=== PATIENT | female | born 1950 | race Caucasian/White ===

== ENCOUNTER 2018-07-06 14:30 | Oncology outpatient (ONC) | payer MEDICARE, SELFPAY ==
--- NOTE | 2018-03-17 08:46 | ONC.APRN.PN ---
Assessment and Plan (1) Malignant neoplasm of rectum Current visit: No Status: Acute 03/17/18 08:53 Kari is a 68-year-old female with a a recurrence of rectal cancer in prior radiation field. She was receiving treatment here at [facility] until July of 2017 at which point she traveled to [facility] for the winter. She continued with FOLFIRI with [facility]. She received 9 of 12 planned cycles. The last 4 or 5 cycles were at 50% reduction due to significant decrease in functional status. Patient is now back in [place] and is looking to re establish care. She had imaging in [place] in December of 2017. She also had imaging here at [place] March 09, 2018 which did not demonstrate any evidence of local recurrence or distant metastases of colon cancer. Imaging was very reassuring however patient is asking for radiology to re read. I will call radiology and ask for re read. In the meantime she had labs drawn today including CEA. These results are pending. I would like for her to return to the clinic next week WednesdayMarch 23 to see medical oncologist Dr Vaughan. I would like for him to review imaging and discuss with the patient appropriate plan of care moving forward. Patient agrees with this plan of care. On exam she looks quite good today. She is clearly recovering from her chemotherapy. There was no palpable adenopathy on exam. She does have a colostomy, she had severe diarrhea with treatment stools have now normalized. Appetite is improving. 03/17/18 12:07 - Time Spent with Patient 35 minutes PN -Subjective Interval history: Kari is a 68-year-old female with a a recurrence of rectal cancer in prior radiation field. She returned from her winter in [place] about 1 month ago. Over the winter she had her left knee replaced. She also had oncology care provided by to [facility]. Per patient report and in review of records it appears she completed 9 of 12 scheduled cycles of FOLFIRI. The last 4 cycles were at 50% dose reduction due to a significant drop in functional status. Patient herself reports she was very sick with fatigue, weakness, diarrhea. Also abnormal labs. She underwent re staging imaging in [place] December 14 2017 also here at 03/09/2018. PET/CT here at was very reassuring. Specifically, there was no evidence of local recurrence or distant metastatic disease. She does have 2 4 mm right middle lobe nodules which are unchanged since 2014. Again, otherwise head and neck, thorax, abdomen pelvis, bones did not demonstrate any evidence of disease. This is very reassuring however the patient is reluctant to accept this report. Per the patient she had imaging at [facility] last year 2016 which the radiologist read as negative for malignancy however when Dr Martin reviewed it he noted a tumor in her right groin on imaging. Pt is requesting a re read of recent imaging. She states CEA contniuned to fluctuate during treatment in [place]. Overall she is beginning to cover from chemotherapy. She states she is starting to feel like a normal human being. She reports she has no desire to resume chemotherapy again any time soon. Certainly, if it is anything like FOLFIRI. Appetite has returned. She is feeling stronger also has more endurance. Stools have normalized (she has colostomy). She still has some trouble with balance for which she is seeing physical therapy. This is in large part due to peripheral neuropathy however as noted above she also recently had left knee replacement which is also contributing to balance issues. Initially She was offered the option of surgical resection however due to potential complications she declined and has been receiving FOLFIRI/Avastin . The iliac node was noted to be smaller on most recent CT imaging. Additionally, based on CEA it appears she is having a response to FOLFIRI/Avastin. Recently she took a hiatus from treatment to undergo hip therapy in [facility]. Dr Gordon previous note: Kari had a radiographic recurrrence in an iliac node of rectal cancer within the prior radiation field. She consulted with Dr. England, who, according to the patient, indicated resection of the lymph node could be accomplished but it would be a big surgery with potential complications. This opinion was also affirmed by her surgeon in [place]. The patient elected not to go to surgery but rather undergo chemotherapy. She started q 14 d FOLFIRI Avastin on 06/30 (CT was 06/22) and is up for cycle 2 today. However, she is up for hip surgery in [facility]; this will require a delay in chemotgherapy. Originally, for rectal cancer, she has had a primary resection after neoadjuvant chemoradiotherapy, adjuvant FOLFOX, subsequent resection of a stephanie metastasis in [place], with a delay in adjuvant therapy. She has also had recent hip surgery and is concerned abou the impact of that on any future surgery. 1. Status post preoperative chemoradiation therapy followed by surgery for rectal carcinoma. The final staging preoperatively TX N1b M0; postoperative T1 N0 M0 after radiation therapy with a 3-cm primary extending into, but not through, the muscularis propria. Adjuvant FOLFOX completed 07/15/2016 2. Preoperative radiation and continuous infusion of 5-FU. 3. Other history including diarrhea. 4. This was an adenocarcinoma grade 2 with mutated KRAS. She was seen by Dr. 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 She was evaluated at [facility] and was not considered a radiation candidate due to the prior radiation field. Patient comes here for further evaluation and management of the radiographic recurrence. TIMELINE Original diagnosis of rectal cancer by colonoscopy 07/20/2014. Subsequent properative chemoradiotherapy in [place], Dr. 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 : CT scan from 03/2017 reviewed below. Past Medical History 5. Endometrial carcinoma, stage IB in 2006, ROSANNE-BSO with no chemotherapy or radiation. 6. ACL repair on the right in the past. 7. Diabetes. Past Surgical History 5. Endometrial carcinoma, stage IB in 2006, ROSANNE-BSO with no chemotherapy or radiation. 6. ACL repair on the right in the past. 7. Diabetes. 8. ROSANNE/BSO Results - Labs 03/17/18 11:09 03/17/18 11:09 - Imaging Additional studies: Procedures Closed [endoscopic] biopsy of large intestine (07/20/14) Esophagogastroduodenoscopy [EGD] with closed biopsy (07/20/14) Home Medications and Allergies Home Medications Medication Instructions Recorded Confirmed Type levothyroxine [Synthroid] 0.075 mg PO QDAY #0 05/27/16 History pantoprazole 40 mg PO BID #0 05/27/16 History naproxen sodium [Aleve] 220 mg PO PRN #0 07/10/16 History lutein-zeaxanthin 1 mg PO QDAY #0 02/17/17 History vitamin B complex [B 1 tab PO QDAY #0 02/17/17 History Complex-Vitamin B12] diphenoxylate-atropine 1 tab PO PRN PRN #30 tab 06/30/17 Rx lorazepam 0.5 mg PO Q6HP PRN #30 tab 06/30/17 Rx ondansetron HCl 8 mg PO Q8H PRN #0 07/15/17 History dextroamphetamine-amphetamine 10 mg PO DAILY 03/17/18 03/17/18 History [Adderall] Exam Narrative: non toxic appearing - Constitutional positive no acute distress, positive average body habitus - Routine HEENT Exam Head: Present: normocephalic, atraumatic Eye: Present: EOMI, PERRL, normal accommodation, conjunctivae pink. Absent: conjunctival icterus, scleral injection ENT: Present: mucous membranes moist - Routine Neck Exam Present: supple. Absent: lymphadenopathy - Routine Chest/Breast/Axilla Exam Axillae: Absent: lymphadenopathy, mass, tenderness - Routine Respiratory Exam Present: Clear to auscultation bilaterally - Routine Cardiovascular Exam Present: RRR, S1, S2 - Routine Abdominal Exam Present: soft, normoactive bowel sounds, ostomy. Absent: tenderness, distended, guarding, organomegaly Palpation/Percussion: Absent: hepatomegaly, splenomegaly Comments: no palpable inguinal nodes - Routine Extremities Exam Absent: edema, calf tenderness - Routine Skin Exam Present: intact, normal turgor. Absent: petechiae, rash - Routine Neurological Exam Present: alert, oriented X3 - Routine Psychiatric Exam Present: normal affect
--- NOTE | 2018-03-17 08:52 | P.PNONC_ITS ---
Assessment and Plan (1) Malignant neoplasm of rectum Current visit: No Status: Acute 03/17/18 08:53 Kari is a 68-year-old female with a a recurrence of rectal cancer in prior radiation field. She was receiving treatment here at [facility] until July of 2017 at which point she traveled to [facility] for the winter. She continued with FOLFIRI with [facility]. She received 9 of 12 planned cycles. The last 4 or 5 cycles were at 50% reduction due to significant decrease in functional status. Patient is now back in [place] and is looking to re establish care. She had imaging in [place] in December of 2017. She also had imaging here at [place] March 09, 2018 which did not demonstrate any evidence of local recurrence or distant metastases of colon cancer. Imaging was very reassuring however patient is asking for radiology to re read. I will call radiology and ask for re read. In the meantime she had labs drawn today including CEA. These results are pending. I would like for her to return to the clinic next week WednesdayMarch 23 to see medical oncologist Dr Vaughan. I would like for him to review imaging and discuss with the patient appropriate plan of care moving forward. Patient agrees with this plan of care. On exam she looks quite good today. She is clearly recovering from her chemotherapy. There was no palpable adenopathy on exam. She does have a colostomy, she had severe diarrhea with treatment stools have now normalized. Appetite is improving. 03/17/18 12:07 - Time Spent with Patient 35 minutes PN -Subjective Interval history: Kari is a 68-year-old female with a a recurrence of rectal cancer in prior radiation field. She returned from her winter in [place] about 1 month ago. Over the winter she had her left knee replaced. She also had oncology care provided by to [facility]. Per patient report and in review of records it appears she completed 9 of 12 scheduled cycles of FOLFIRI. The last 4 cycles were at 50% dose reduction due to a significant drop in functional status. Patient herself reports she was very sick with fatigue, weakness, diarrhea. Also abnormal labs. She underwent re staging imaging in [place] December 14 2017 also here at 03/09/2018. PET/CT here at was very reassuring. Specifically , there was no evidence of local recurrence or distant metastatic disease. She does have 2 4 mm right middle lobe nodules which are unchanged since 2014. Again, otherwise head and neck, thorax, abdomen pelvis, bones did not demonstrate any evidence of disease. This is very reassuring however the patient is reluctant to accept this report. Per the patient she had imaging at [facility] last year 2016 which the radiologist read as negative for malignancy however when Dr Martin reviewed it he noted a tumor in her right groin on imaging. Pt is requesting a re read of recent imaging. She states CEA contniuned to fluctuate during treatment in [place]. Overall she is beginning to cover from chemotherapy. She states she is starting to feel like a normal human being. She reports she has no desire to resume chemotherapy again any time soon. Certainly, if it is anything like FOLFIRI. Appetite has returned. She is feeling stronger also has more endurance. Stools have normalized (she has colostomy). She still has some trouble with balance for which she is seeing physical therapy. This is in large part due to peripheral neuropathy however as noted above she also recently had left knee replacement which is also contributing to balance issues. Initially She was offered the option of surgical resection however due to potential complications she declined and has been receiving FOLFIRI/Avastin . The iliac node was noted to be smaller on most recent CT imaging. Additionally , based on CEA it appears she is having a response to FOLFIRI/Avastin. Recently she took a hiatus from treatment to undergo hip therapy in [facility] Dr Gordon previous note: Kari had a radiographic recurrrence in an iliac node of rectal cancer within the prior radiation field. She consulted with Dr. England, who, according to the patient, indicated resection of the lymph node could be accomplished but it would be a big surgery with potential complications. This opinion was also affirmed by her surgeon in [place]. The patient elected not to go to surgery but rather undergo chemotherapy. She started q 14 d FOLFIRI Avastin on 06/30 (CT was 06/22) and is up for cycle 2 today. However, she is up for hip surgery in [facility]; this will require a delay in chemotgherapy. Originally, for rectal cancer, she has had a primary resection after neoadjuvant chemoradiotherapy, adjuvant FOLFOX, subsequent resection of a stephanie metastasis in [place], with a delay in adjuvant therapy. She has also had recent hip surgery and is concerned abou the impact of that on any future surgery. 1. Status post preoperative chemoradiation therapy followed by surgery for rectal carcinoma. The final staging preoperatively [place] N1b M0; postoperative T1 N0 M0 after radiation therapy with a 3-cm primary extending into, but not through, the muscularis propria. Adjuvant FOLFOX completed 07/15/2016 2. Preoperative radiation and continuous infusion of 5-FU. 3. Other history including diarrhea. 4. This was an adenocarcinoma grade 2 with mutated KRAS. She was seen by Dr. 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 She was evaluated at [facility] and was not considered a radiation candidate due to the prior radiation field. Patient comes here for further evaluation and management of the radiographic recurrence. TIMELINE Original diagnosis of rectal cancer by colonoscopy 07/20/2014. Subsequent properative chemoradiotherapy in [place], Dr. 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 : CT scan from 03/2017 reviewed below. Past Medical History 5. Endometrial carcinoma, stage IB in 2006, ROSANNE-BSO with no chemotherapy or radiation. 6. ACL repair on the right in the past. 7. Diabetes. Past Surgical History 5. Endometrial carcinoma, stage IB in 2006, ROSANNE-BSO with no chemotherapy or radiation. 6. ACL repair on the right in the past. 7. Diabetes. 8. ROSANNE/BSO Results - Labs 03/17/18 11:09 03/17/18 11:09 - Imaging Additional studies: Procedures Closed [endoscopic] biopsy of large intestine (07/20/14) Esophagogastroduodenoscopy [EGD] with closed biopsy (07/20/14) Home Medications and Allergies Home Medications Medication Instructions Recorded Confirmed Type levothyroxine [Synthroid] 0.075 mg PO QDAY #0 05/27/16 History pantoprazole 40 mg PO BID #0 05/27/16 History naproxen sodium [Aleve] 220 mg PO PRN #0 07/10/16 History lutein-zeaxanthin 1 mg PO QDAY #0 02/17/17 History vitamin B complex [B 1 tab PO QDAY #0 02/17/17 History Complex-Vitamin B12] diphenoxylate-atropine 1 tab PO PRN PRN #30 tab 06/30/17 Rx lorazepam 0.5 mg PO Q6HP PRN #30 tab 06/30/17 Rx ondansetron HCl 8 mg PO Q8H PRN #0 07/15/17 History dextroamphetamine-amphetamine 10 mg PO DAILY 03/17/18 03/17/18 History [Adderall] Exam Narrative: non toxic appearing - Constitutional positive no acute distress, positive average body habitus - Routine HEENT Exam Head: Present: normocephalic, atraumatic Eye: Present: EOMI, PERRL, normal accommodation, conjunctivae pink. Absent: conjunctival icterus, scleral injection ENT: Present: mucous membranes moist - Routine Neck Exam Present: supple. Absent: lymphadenopathy - Routine Chest/Breast/Axilla Exam Axillae: Absent: lymphadenopathy, mass, tenderness - Routine Respiratory Exam Present: Clear to auscultation bilaterally - Routine Cardiovascular Exam Present: RRR, S1, S2 - Routine Abdominal Exam Present: soft, normoactive bowel sounds, ostomy. Absent: tenderness, distended , guarding, organomegaly Palpation/Percussion: Absent: hepatomegaly, splenomegaly Comments: no palpable inguinal nodes - Routine Extremities Exam Absent: edema, calf tenderness - Routine Skin Exam Present: intact, normal turgor. Absent: petechiae, rash - Routine Neurological Exam Present: alert, oriented X3 - Routine Psychiatric Exam Present: normal affect
[2018-03-17 11:15] VITALS: BP 151/83; PULSE 87; RESP 16; TEMP 36.2; O2SAT 98
[2018-03-17 11:25] LABS: Add Manual Diff / Slide Review NO; Basophils Percent Auto 1.2 % (0-2); Eosinophils Percent Auto 3.5 % (2-4); Hematocrit 37.8 % (36-46); Hemoglobin 12.3 g/dL (12.0-16.0); Lymphocytes Percent Auto 13.9 % (25-40); Mean Corpuscular HGB Conc 32.4 % (30-36); Mean Corpuscular Hemoglobin 26.4 PG (26-34); Mean Corpuscular Volume 81.6 fL (80-100); Monocytes Percent Auto 5.9 % (3-14); Neutrophils Absolute Auto 3600 /uL (3000-5900); Neutrophils Percent Auto 75.5 % (50-75); Platelet Count 162 X10^3/uL (150-400); Red Blood Cell Count 4.64 X10^6/uL (4.0-5.2); Red Cell Distribution Width 16.1 % (11.6-14.8); White Blood Cell Count 4.7 X10^3/uL (4.5-11.0)
[2018-03-17 11:37] LABS: Alanine Aminotransferase 21 IU/L (9-52); Albumin 4.2 g/dL (3.5-5.0); Albumin Globulin Ratio 1.4 (1.0-2.8); Alkaline Phosphatase 69 U/L (38-126); Aspartate Aminotransferase 49 IU/L (14-36); BUN Creatinine Ratio 25.7 (6-22); Bilirubin Total 0.8 mg/dL (0.2-1.3); Blood Urea Nitrogen 18 mg/dL (7-17); Calcium 9.3 mg/dL (8.4-10.2); Carbon Dioxide 25 mmol/L (22-32); Chloride 103 mmol/L (98-107); Estimated Glomerular Filt Rate > 60.0 mL/min (>60); Globulin 3.1 g/dL (1.7-4.1); Glucose 101 mg/dL (80-110); HEMOLYSIS 27 (0-50); Potassium 4.5 mmol/L (3.4-5.1); Sodium 141 mmol/L (137-145); Total Protein 7.3 g/dL (6.3-8.2)
[2018-03-17 12:07] LABS: Carcinoembryonic Antigen 22.9 ng/mL (0.1-3.0)
--- NOTE | 2018-04-06 17:04 | ONC.PN ---
Assessment and Plan - Time Spent with Patient IMPRESSION: 1. RECURRENT RECTAL CARCINOMA. 2. ELEVATED CEA. Nonsmoker. 3. Fatigue and malaise, improving. 4. DIABETES MELLITUS 5. ENDOMETRIAL CARCINOMA, STAGE IB STATUS POST ROSANNE-BSO IN 2005. I reviewed her extensive, past records from [place] and from [place] as well as recent imaging reports, labs and related documents. She is recovering well from recently completed chemotherapy in December 2017. She is not at all anxious to resume systemic therapy and there are no clear guidelines to make additional recommendations at this time. I reviewed with her that typically we would try to offer consolidative, local therapy in the form of surgical resection or radiation therapy. She has had extensive evaluation and consultation including with Dr. Brink at [facility] and no additional treatment was recommended. She has also visited with her primary surgeon, Dr. Smith in [place] and he also agreed that further surgery was not a viable option for her. We reviewed other treatment options as well as monitoring. Also reviewed recent PET/CT from 03/09/2018. This was not directly compared with her most recent PET-CT from [place] date 12/14/2017. There were some mild, new findings particularly in bilateral nayana and she would like more information about this. I will request that her recent scan be reviewed and compared directly with her December PET/CT. She has brought her CD in previously and we are told it has been up loaded onto the local [facility] imaging system. We will otherwise anticipate a follow-up scan 3 months from her recent study. She is comfortable with the plan and will call with any new concerns. PLAN: 1. Request review of PET/CT 03/09/2018 and direct comparison with outside study from 12/14/2017. 2. Repeat CEA in 2 weeks. 3. Follow-up appointment pending above results or any new concerns arise. 4. Return to clinic in early June. 5. CT versus PET/CT prior to the visit. 6. CBC, CMP, CEA in June. 7. Follow up with other providers as planned. DICTATED BY CATALINA LYNCH MD MEDICAL ONCOLOGY AND HEMATOLOGY PN -Subjective Interval history: Ms Choudhury is a 68-year-old woman with recurrent rectal carcinoma. Interval history: She returns today with her friend, Snehal. Here to review recent imaging, treatment history and plan. She was originally diagnosed on routine colonoscopy in July 2014. Treated with neoadjuvant 5 FU and radiation therapy before undergoing AP resection in [place] performed by Dr. Harris in December 2014. She completed adjuvant therapy with 6 months of FOLFOX in approximately July 2015. Subsequently noted a rising CEA in summer 2015, reportedly in the range of 60 with PET scan showing a left pelvic lymph node just bordering the radiation treatment field. She had surgery in [place] to resect this and continued monitoring. Subsequently, noted in early 2016 to have an no other area in the left pelvis with slight hypermetabolic activity on PET scan, again representing possible small lymph node or nodule. This time, surgery was not recommended and she was seen locally by Dr Martin, as well as Dr England, at [facility] by Dr Mann in medical oncology and by Dr Brink in radiation oncology and finally back in [place] by Dr. Arevalo and Dr Harris. All agreed that surgery would be too extensive, she was not eligible for proton therapy due to her left hip prosthesis and stereotactic radiation therapy was not an option due to adjacent small bowel exposure. She was not eligible for clinical trial at [facility] but ultimately was treated based on this with a combination of FOLFIRI and bevacizumab. She received treatment from late June 2017 through December 2017 with the 1st few weeks in [place] and the majority in [place]. She had difficulty with treatment due to bowel and GI symptoms, fatigue and cytopenias. She ultimately completed 9/12 planned cycles of FOLFIRI. She recently returned to [place] where she plans to spend the summer and early fall months. She returns today to review treatment plan. SUMMARY FROM PAST NOTES: Kari is a 68-year-old female with a a recurrence of rectal cancer in prior radiation field. She returned from her winter in [place] about 1 month ago. Over the winter she had her left knee replaced. She also had oncology care provided by to [facility]. Per patient report and in review of records it appears she completed 9 of 12 scheduled cycles of FOLFIRI. The last 4 cycles were at 50% dose reduction due to a significant drop in functional status. Patient herself reports she was very sick with fatigue, weakness, diarrhea. Also abnormal labs. She underwent re staging imaging in [place] December 14 2017 also here at 03/09/2018. PET/CT here at was very reassuring. Specifically, there was no evidence of local recurrence or distant metastatic disease. She does have 2 4 mm right middle lobe nodules which are unchanged since 2014. Again, otherwise head and neck, thorax, abdomen pelvis, bones did not demonstrate any evidence of disease. This is very reassuring however the patient is reluctant to accept this report. Per the patient she had imaging at [facility] last year 2016 which the radiologist read as negative for malignancy however when Dr Martin reviewed it he noted a tumor in her right groin on imaging. Pt is requesting a re read of recent imaging. She states CEA contniuned to fluctuate during treatment in [place]. Overall she is beginning to cover from chemotherapy. She states she is starting to feel like a normal human being. She reports she has no desire to resume chemotherapy again any time soon. Certainly, if it is anything like FOLFIRI. Appetite has returned. She is feeling stronger also has more endurance. Stools have normalized (she has colostomy). She still has some trouble with balance for which she is seeing physical therapy. This is in large part due to peripheral neuropathy however as noted above she also recently had left knee replacement which is also contributing to balance issues. Initially She was offered the option of surgical resection however due to potential complications she declined and has been receiving FOLFIRI/Avastin . The iliac node was noted to be smaller on most recent CT imaging. Additionally, based on CEA it appears she is having a response to FOLFIRI/Avastin. Recently she took a hiatus from treatment to undergo hip therapy in [facility]. Dr Gordon previous note: Kari had a radiographic recurrrence in an iliac node of rectal cancer within the prior radiation field. She consulted with Dr. England, who, according to the patient, indicated resection of the lymph node could be accomplished but it would be a big surgery with potential complications. This opinion was also affirmed by her surgeon in [place]. The patient elected not to go to surgery but rather undergo chemotherapy. She started q 14 d FOLFIRI Avastin on 06/30 (CT was 06/22) and is up for cycle 2 today. However, she is up for hip surgery in [facility]; this will require a delay in chemotgherapy. Originally, for rectal cancer, she has had a primary resection after neoadjuvant chemoradiotherapy, adjuvant FOLFOX, subsequent resection of a stephanie metastasis in [place], with a delay in adjuvant therapy. She has also had recent hip surgery and is concerned abou the impact of that on any future surgery. 1. Status post preoperative chemoradiation therapy followed by surgery for rectal carcinoma. The final staging preoperatively TX N1b M0; postoperative T1 N0 M0 after radiation therapy with a 3-cm primary extending into, but not through, the muscularis propria. Adjuvant FOLFOX completed 07/15/2016 2. Preoperative radiation and continuous infusion of 5-FU. 3. Other history including diarrhea. 4. This was an adenocarcinoma grade 2 with mutated KRAS. She was seen by Dr. 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 She was evaluated at [facility] and was not considered a radiation candidate due to the prior radiation field. Patient comes here for further evaluation and management of the radiographic recurrence. TIMELINE Original diagnosis of rectal cancer by colonoscopy 07/20/2014. Subsequent properative chemoradiotherapy in [place], Dr. Kelley , radiation oncologist Subsequent FOLFOX adjuvant chemotherapy, completed 07/15/2015 PET/CT 05/08/16 showing retroperitoneal oligometastasis RECORDS UNAVAILABLE: subsequent resection of oligometastasis in [place] PET/CT 01/27/2017 showing a different pelvicoligometastasis on the left in the prion radiation field. : CT scan from 03/2017 reviewed below. Past Medical History 5. Endometrial carcinoma, stage IB in 2006, ROSANNE-BSO with no chemotherapy or radiation. 6. ACL repair on the right in the past. 7. Diabetes. Past Surgical History 5. Endometrial carcinoma, stage IB in 2006, ROSANNE-BSO with no chemotherapy or radiation. 6. ACL repair on the right in the past. 7. Diabetes. 8. ROSANNE/BSO - Patient Self-Reported Symptoms SR Constitution: Fatigue/Malaise SR Skin issues: Hair loss or scalp prob, Nail changes SR Gastrointestinal issues: Change in bowel pattern, Diarrhea SR Genitourinary issues: Frequent urination SR Musculoskeletal issues: Muscle weakness SR Neuro issues: Numbness or tingling SR Endocrine issues: Cold intolerance - Additional ROS Additional ROS: REVIEW OF SYSTEMS: NO FEVER, CHILLS OR RECENT WEIGHT LOSS. HEENT: NO HEADACHES, VISION CHANGE OR DYSPHAGIA. RESPIRATORY: NEGATIVE. CARDIAC: NO CHEST PAIN, PND OR ORTHOPNEA. GI: NEGATIVE. COLOSTOMY IS FUNCTIONING. NO HEMATOCHEZIA. : NEGATIVE. MUSCULOSKELETAL: NEGATIVE. NEUROLOGIC: NEGATIVE. Results - Labs 03/17/18 11:09 03/17/18 11:09 Laboratory Last Values WBC 4.7 X10^3/uL (4.5-11.0) 03/17/18 11:09 RBC 4.64 X10^6/uL (4.0-5.2) 03/17/18 11:09 Hgb 12.3 g/dL (12.0-16.0) 03/17/18 11:09 Hct 37.8 % (36-46) 03/17/18 11:09 MCV 81.6 fL (80-100) 03/17/18 11:09 MCH 26.4 PG (26-34) 03/17/18 11:09 MCHC 32.4 % (30-36) 03/17/18 11:09 RDW 16.1 % (11.6-14.8) H 03/17/18 11:09 Plt Count 162 X10^3/uL (150-400) 03/17/18 11:09 Neut % (Auto) 75.5 % (50-75) H 03/17/18 11:09 Lymph % (Auto) 13.9 % (25-40) L 03/17/18 11:09 [place] % (Auto) 5.9 % (3-14) 03/17/18 11:09 Eos % (Auto) 3.5 % (2-4) 03/17/18 11:09 Baso % (Auto) 1.2 % (0-2) 03/17/18 11:09 Neut # (Auto) 3600 /uL (4756-0754) 03/17/18 11:09 Sodium 141 mmol/L (137-145) 03/17/18 11:09 Potassium 4.5 mmol/L (3.4-5.1) 03/17/18 11:09 Chloride 103 mmol/L (98-107) 03/17/18 11:09 Carbon Dioxide 25 mmol/L (22-32) 03/17/18 11:09 BUN 18 mg/dL (7-17) H 03/17/18 11:09 Creatinine 0.70 mg/dL (0.52-1.04) 03/17/18 11:09 Estimated GFR > 60.0 mL/min (>60) 03/17/18 11:09 BUN/Creatinine Ratio 25.7 (6-22) H 03/17/18 11:09 Glucose 101 mg/dL (80-110) 03/17/18 11:09 Calcium 9.3 mg/dL (8.4-10.2) 03/17/18 11:09 Total Bilirubin 0.8 mg/dL (0.2-1.3) 03/17/18 11:09 AST 49 IU/L (14-36) H 03/17/18 11:09 ALT 21 IU/L (9-52) 03/17/18 11:09 Alkaline Phosphatase 69 U/L (38-126) 03/17/18 11:09 Total Protein 7.3 g/dL (6.3-8.2) 03/17/18 11:09 Albumin 4.2 g/dL (3.5-5.0) 03/17/18 11:09 Globulin 3.1 g/dL (1.7-4.1) 03/17/18 11:09 Albumin/Globulin Ratio 1.4 (1.0-2.8) 03/17/18 11:09 Carcinoembryonic Ag 22.9 ng/mL (0.1-3.0) H 03/17/18 11:09 - Imaging Additional studies: Procedures Closed [endoscopic] biopsy of large intestine (07/20/14) Esophagogastroduodenoscopy [EGD] with closed biopsy (07/20/14) Home Medications and Allergies Home Medications Medication Instructions Recorded Confirmed Type levothyroxine [Synthroid] 0.075 mg PO QDAY #0 05/27/16 History pantoprazole 40 mg PO BID #0 05/27/16 History naproxen sodium [Aleve] 220 mg PO PRN #0 07/10/16 History lutein-zeaxanthin 1 mg PO QDAY #0 02/17/17 History vitamin B complex [B 1 tab PO QDAY #0 02/17/17 History Complex-Vitamin B12] diphenoxylate-atropine 1 tab PO PRN PRN #30 tab 06/30/17 Rx lorazepam 0.5 mg PO Q6HP PRN #30 tab 06/30/17 Rx ondansetron HCl 8 mg PO Q8H PRN #0 07/15/17 History dextroamphetamine-amphetamine 10 mg PO DAILY 03/17/18 03/17/18 History [Adderall] Exam Vital signs: Last Vital Signs Temp 97.2 F L 03/17/18 11:15 Pulse 87 03/17/18 11:15 Resp 16 03/17/18 11:15 BP 151/83 H 03/17/18 11:15 Pulse Ox 98 03/17/18 11:15 - Constitutional positive no acute distress, positive average body habitus - Routine HEENT Exam Head: Present: normocephalic, atraumatic. Absent: cushingoid faces Eye: Present: EOMI, PERRL. Absent: conjunctival icterus, scleral injection ENT: Present: mucous membranes moist, oropharynx clear - Routine Neck Exam Present: supple. Absent: JVD, lymphadenopathy - Routine Respiratory Exam Present: Clear to auscultation bilaterally. Absent: rales, rhonchi, wheezes - Routine Cardiovascular Exam Present: RRR, S1, S2. Absent: murmur, S3 - Routine Abdominal Exam Present: soft, normoactive bowel sounds, ostomy. Absent: tenderness, distended, guarding, organomegaly Palpation/Percussion: Absent: hepatomegaly - Routine Extremities Exam Absent: cyanosis, clubbing, edema - Routine Back/Spine Exam Back/Spine: Present: full ROM. Absent: vertebral tenderness - Routine Skin Exam Present: intact. Absent: cyanosis, erythema, jaundice, rash, ecchymosis - Routine Neurological Exam Present: alert, oriented X3, moving all extremities, normal speech - Routine Psychiatric Exam Present: normal affect, normal thought process, cooperative, good insight, good judgment
--- NOTE | 2018-04-06 17:15 | P.PNONC_ITS ---
Assessment and Plan - Time Spent with Patient IMPRESSION: 1. RECURRENT RECTAL CARCINOMA. 2. ELEVATED CEA. Nonsmoker. 3. Fatigue and malaise, improving. 4. DIABETES MELLITUS 5. ENDOMETRIAL CARCINOMA, STAGE IB STATUS POST ROSANNE-BSO IN 2005. I reviewed her extensive, past records from [place] and from [place] as well as recent imaging reports, labs and related documents. She is recovering well from recently completed chemotherapy in December 2017. She is not at all anxious to resume systemic therapy and there are no clear guidelines to make additional recommendations at this time. I reviewed with her that typically we would try to offer consolidative, local therapy in the form of surgical resection or radiation therapy. She has had extensive evaluation and consultation including with Dr. Brink at [facility] and no additional treatment was recommended. She has also visited with her primary surgeon, Dr. Smith in [place] and he also agreed that further surgery was not a viable option for her. We reviewed other treatment options as well as monitoring. Also reviewed recent PET/CT from 03/09. This was not directly compared with her most recent PET-CT from [place] date 12/14/2017. There were some mild, new findings particularly in bilateral nayana and she would like more information about this. I will request that her recent scan be reviewed and compared directly with her December PET/CT. She has brought her CD in previously and we are told it has been up loaded onto the local [facility] imaging system. We will otherwise anticipate a follow-up scan 3 months from her recent study. She is comfortable with the plan and will call with any new concerns. PLAN: 1. Request review of PET/CT 03/09/2018 and direct comparison with outside study from 12/14/2017. 2. Repeat CEA in 2 weeks. 3. Follow-up appointment pending above results or any new concerns arise. 4. Return to clinic in early June. 5. CT versus PET/CT prior to the visit. 6. CBC, CMP, CEA in June. 7. Follow up with other providers as planned. DICTATED BY CATALINA LYNCH MD MEDICAL ONCOLOGY AND HEMATOLOGY PN -Subjective Interval history: Ms Choudhury is a 68-year-old woman with recurrent rectal carcinoma. Interval history: She returns today with her friend, Snehal. Here to review recent imaging, treatment history and plan. She was originally diagnosed on routine colonoscopy in July 2014. Treated with neoadjuvant 5 FU and radiation therapy before undergoing AP resection in [place] performed by Dr. Harris in December 2014. She completed adjuvant therapy with 6 months of FOLFOX in approximately July 2015. Subsequently noted a rising CEA in summer 2015, reportedly in the range of 60 with PET scan showing a left pelvic lymph node just bordering the radiation treatment field. She had surgery in [place] to resect this and continued monitoring. Subsequently, noted in early 2016 to have an no other area in the left pelvis with slight hypermetabolic activity on PET scan, again representing possible small lymph node or nodule. This time, surgery was not recommended and she was seen locally by Dr Martin, as well as Dr England, at [facility] by Dr Mann in medical oncology and by Dr Brink in radiation oncology and finally back in [place] by Dr. Arevalo and Dr Harris. All agreed that surgery would be too extensive, she was not eligible for proton therapy due to her left hip prosthesis and stereotactic radiation therapy was not an option due to adjacent small bowel exposure. She was not eligible for clinical trial at [facility] but ultimately was treated based on this with a combination of FOLFIRI and bevacizumab. She received treatment from late June 2017 through December 2017 with the 1st few weeks in [place] and the majority in [place]. She had difficulty with treatment due to bowel and GI symptoms, fatigue and cytopenias. She ultimately completed 9/12 planned cycles of FOLFIRI. She recently returned to [place] where she plans to spend the summer and early fall months. She returns today to review treatment plan. SUMMARY FROM PAST NOTES: Kari is a 68-year-old female with a a recurrence of rectal cancer in prior radiation field. She returned from her winter in [place] about 1 month ago. Over the winter she had her left knee replaced. She also had oncology care provided by to [facility]. Per patient report and in review of records it appears she completed 9 of 12 scheduled cycles of FOLFIRI. The last 4 cycles were at 50% dose reduction due to a significant drop in functional status. Patient herself reports she was very sick with fatigue, weakness, diarrhea. Also abnormal labs. She underwent re staging imaging in [place] December 14 2017 also here at 03/09/2018. PET/CT here at was very reassuring. Specifically , there was no evidence of local recurrence or distant metastatic disease. She does have 2 4 mm right middle lobe nodules which are unchanged since 2014. Again, otherwise head and neck, thorax, abdomen pelvis, bones did not demonstrate any evidence of disease. This is very reassuring however the patient is reluctant to accept this report. Per the patient she had imaging at [facility] last year 2016 which the radiologist read as negative for malignancy however when Dr Martin reviewed it he noted a tumor in her right groin on imaging. Pt is requesting a re read of recent imaging. She states CEA contniuned to fluctuate during treatment in [place]. Overall she is beginning to cover from chemotherapy. She states she is starting to feel like a normal human being. She reports she has no desire to resume chemotherapy again any time soon. Certainly, if it is anything like FOLFIRI. Appetite has returned. She is feeling stronger also has more endurance. Stools have normalized (she has colostomy). She still has some trouble with balance for which she is seeing physical therapy. This is in large part due to peripheral neuropathy however as noted above she also recently had left knee replacement which is also contributing to balance issues. Initially She was offered the option of surgical resection however due to potential complications she declined and has been receiving FOLFIRI/Avastin . The iliac node was noted to be smaller on most recent CT imaging. Additionally , based on CEA it appears she is having a response to FOLFIRI/Avastin. Recently she took a hiatus from treatment to undergo hip therapy in [facility]. Dr Gordon previous note: Kari had a radiographic recurrrence in an iliac node of rectal cancer within the prior radiation field. She consulted with Dr. England, who, according to the patient, indicated resection of the lymph node could be accomplished but it would be a big surgery with potential complications. This opinion was also affirmed by her surgeon in [place]. The patient elected not to go to surgery but rather undergo chemotherapy. She started q 14 d FOLFIRI Avastin on 06/30 (CT was 06/22) and is up for cycle 2 today. However, she is up for hip surgery in [facility]; this will require a delay in chemotgherapy. Originally, for rectal cancer, she has had a primary resection after neoadjuvant chemoradiotherapy, adjuvant FOLFOX, subsequent resection of a stephanie metastasis in [place], with a delay in adjuvant therapy. She has also had recent hip surgery and is concerned abou the impact of that on any future surgery. 1. Status post preoperative chemoradiation therapy followed by surgery for rectal carcinoma. The final staging preoperatively TX N1b M0; postoperative T1 N0 M0 after radiation therapy with a 3-cm primary extending into, but not through, the muscularis propria. Adjuvant FOLFOX completed 07/15/2016 2. Preoperative radiation and continuous infusion of 5-FU. 3. Other history including diarrhea. 4. This was an adenocarcinoma grade 2 with mutated KRAS. She was seen by Dr. 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 She was evaluated at [facility] and was not considered a radiation candidate due to the prior radiation field. Patient comes here for further evaluation and management of the radiographic recurrence. TIMELINE Original diagnosis of rectal cancer by colonoscopy 07/20/2014. Subsequent properative chemoradiotherapy in [place], Dr. Kelley , radiation oncologist Subsequent FOLFOX adjuvant chemotherapy, completed 07/15/2015 PET/CT 05/08/16 showing retroperitoneal oligometastasis RECORDS UNAVAILABLE: subsequent resection of oligometastasis in [place] PET/CT 01/27/2017 showing a different pelvicoligometastasis on the left in the prion radiation field. : CT scan from 03/2017 reviewed below. Past Medical History 5. Endometrial carcinoma, stage IB in 2006, ROSANNE-BSO with no chemotherapy or radiation. 6. ACL repair on the right in the past. 7. Diabetes. Past Surgical History 5. Endometrial carcinoma, stage IB in 2006, ROSANNE-BSO with no chemotherapy or radiation. 6. ACL repair on the right in the past. 7. Diabetes. 8. ROSANNE/BSO - Patient Self-Reported Symptoms SR Constitution: Fatigue/Malaise SR Skin issues: Hair loss or scalp prob, Nail changes SR Gastrointestinal issues: Change in bowel pattern, Diarrhea SR Genitourinary issues: Frequent urination SR Musculoskeletal issues: Muscle weakness SR Neuro issues: Numbness or tingling SR Endocrine issues: Cold intolerance - Additional ROS Additional ROS: REVIEW OF SYSTEMS: NO FEVER, CHILLS OR RECENT WEIGHT LOSS. HEENT: NO HEADACHES , VISION CHANGE OR DYSPHAGIA. RESPIRATORY: NEGATIVE. CARDIAC: NO CHEST PAIN , PND OR ORTHOPNEA. GI: NEGATIVE. COLOSTOMY IS FUNCTIONING. NO HEMATOCHEZIA. : NEGATIVE. MUSCULOSKELETAL: NEGATIVE. NEUROLOGIC: NEGATIVE. Results - Labs 03/17/18 11:09 03/17/18 11:09 Laboratory Last Values WBC 4.7 X10^3/uL (4.5-11.0) 03/17/18 11:09 RBC 4.64 X10^6/uL (4.0-5.2) 03/17/18 11:09 Hgb 12.3 g/dL (12.0-16.0) 03/17/18 11:09 Hct 37.8 % (36-46) 03/17/18 11:09 MCV 81.6 fL (80-100) 03/17/18 11:09 MCH 26.4 PG (26-34) 03/17/18 11:09 MCHC 32.4 % (30-36) 03/17/18 11:09 RDW 16.1 % (11.6-14.8) H 03/17/18 11:09 Plt Count 162 X10^3/uL (150-400) 03/17/18 11:09 Neut % (Auto) 75.5 % (50-75) H 03/17/18 11:09 Lymph % (Auto) 13.9 % (25-40) L 03/17/18 11:09 Duval % (Auto) 5.9 % (3-14) 03/17/18 11:09 Eos % (Auto) 3.5 % (2-4) 03/17/18 11:09 Baso % (Auto) 1.2 % (0-2) 03/17/18 11:09 Neut # (Auto) 3600 /uL (3065-2190) 03/17/18 11:09 Sodium 141 mmol/L (137-145) 03/17/18 11:09 Potassium 4.5 mmol/L (3.4-5.1) 03/17/18 11:09 Chloride 103 mmol/L (98-107) 03/17/18 11:09 Carbon Dioxide 25 mmol/L (22-32) 03/17/18 11:09 BUN 18 mg/dL (7-17) H 03/17/18 11:09 Creatinine 0.70 mg/dL (0.52-1.04) 03/17/18 11:09 Estimated GFR > 60.0 mL/min (>60) 03/17/18 11:09 BUN/Creatinine Ratio 25.7 (6-22) H 03/17/18 11:09 Glucose 101 mg/dL (80-110) 03/17/18 11:09 Calcium 9.3 mg/dL (8.4-10.2) 03/17/18 11:09 Total Bilirubin 0.8 mg/dL (0.2-1.3) 03/17/18 11:09 AST 49 IU/L (14-36) H 03/17/18 11:09 ALT 21 IU/L (9-52) 03/17/18 11:09 Alkaline Phosphatase 69 U/L (38-126) 03/17/18 11:09 Total Protein 7.3 g/dL (6.3-8.2) 03/17/18 11:09 Albumin 4.2 g/dL (3.5-5.0) 03/17/18 11:09 Globulin 3.1 g/dL (1.7-4.1) 03/17/18 11:09 Albumin/Globulin Ratio 1.4 (1.0-2.8) 03/17/18 11:09 Carcinoembryonic Ag 22.9 ng/mL (0.1-3.0) H 03/17/18 11:09 - Imaging Additional studies: Procedures Closed [endoscopic] biopsy of large intestine (07/20/14) Esophagogastroduodenoscopy [EGD] with closed biopsy (07/20/14) Home Medications and Allergies Home Medications Medication Instructions Recorded Confirmed Type levothyroxine [Synthroid] 0.075 mg PO QDAY #0 05/27/16 History pantoprazole 40 mg PO BID #0 05/27/16 History naproxen sodium [Aleve] 220 mg PO PRN #0 07/10/16 History lutein-zeaxanthin 1 mg PO QDAY #0 02/17/17 History vitamin B complex [B 1 tab PO QDAY #0 02/17/17 History Complex-Vitamin B12] diphenoxylate-atropine 1 tab PO PRN PRN #30 tab 06/30/17 Rx lorazepam 0.5 mg PO Q6HP PRN #30 tab 06/30/17 Rx ondansetron HCl 8 mg PO Q8H PRN #0 07/15/17 History dextroamphetamine-amphetamine 10 mg PO DAILY 03/17/18 03/17/18 History [Adderall] Exam Vital signs: Last Vital Signs Temp 97.2 F L 03/17/18 11:15 Pulse 87 03/17/18 11:15 Resp 16 03/17/18 11:15 BP 151/83 H 03/17/18 11:15 Pulse Ox 98 03/17/18 11:15 - Constitutional positive no acute distress, positive average body habitus - Routine HEENT Exam Head: Present: normocephalic, atraumatic. Absent: cushingoid faces Eye: Present: EOMI, PERRL. Absent: conjunctival icterus, scleral injection ENT: Present: mucous membranes moist, oropharynx clear - Routine Neck Exam Present: supple. Absent: JVD, lymphadenopathy - Routine Respiratory Exam Present: Clear to auscultation bilaterally. Absent: rales, rhonchi, wheezes - Routine Cardiovascular Exam Present: RRR, S1, S2. Absent: murmur, S3 - Routine Abdominal Exam Present: soft, normoactive bowel sounds, ostomy. Absent: tenderness, distended , guarding, organomegaly Palpation/Percussion: Absent: hepatomegaly - Routine Extremities Exam Absent: cyanosis, clubbing, edema - Routine Back/Spine Exam Back/Spine: Present: full ROM. Absent: vertebral tenderness - Routine Skin Exam Present: intact. Absent: cyanosis, erythema, jaundice, rash, ecchymosis - Routine Neurological Exam Present: alert, oriented X3, moving all extremities, normal speech - Routine Psychiatric Exam Present: normal affect, normal thought process, cooperative, good insight, good judgment
[2018-04-07 09:13] VITALS: BP 118/74; PULSE 88; RESP 16
[2018-04-19 17:27] LABS: Carcinoembryonic Antigen 38.4 ng/mL (0.1-3.0)
--- NOTE | 2018-04-20 12:26 | PC.NURSE ---
Addendum entered by Mery Hyatt R.N. 04/20/18 14:47: Dr Vaughan reviewed both the CEA value of 38 and the addendum comparing the 2 PET scans. According to the PET scans, it doesn't show an increase in hypermetabolic activity in the areas they were concerned about. Per Dr Vaughan, if pt is anxious about the CEA elevation and wants to be seen before June follow up, he would be willing to see her. Message left with Neha requesting a return call. Original Note: Addendum entered by Mery Hyatt R.N. 04/20/18 14:29: correction to CEA value: not 48 as mentioned below, it's 38 (up from 22). Original Note: Late entry for 04/19/18 @ 1530 pt in for lab draw and had questions about when she needed to return to see Dr. Reviewed last dictation and note that Dr Vaughan needs radiologist to compare last [address] scans and also ordered a CEA. Per dictation, follow up in June unless the CEA or comparison PETS come back as needing attention sooner than June. Noted CEA value to be 48, which is up. Comparison PET scans addendum added. Due to pt CEA being elevated, question into Dr Vaughan to ask if she needs to be seen sooner than June.
[2018-06-02 13:09] LABS: Carcinoembryonic Antigen 51.4 ng/mL (0.1-3.0)
--- NOTE | 2018-06-02 16:34 | PC.NURSE ---
labs noted, elevated CEA. Provider visit on 06/08
[2018-06-08 14:46] VITALS: BP 130/70; PULSE 83; RESP 15; TEMP 36.4; O2SAT 99
--- NOTE | 2018-06-08 15:23 | P.PNONC_ITS ---
Assessment and Plan (1) Malignant neoplasm of rectum Problem details: 68-year-old woman with oligo metastatic rectal cancer. She previously has been found not to be a candidate for local therapy with either surgical resection or radiation. She appeared to have a good response to her FOLFIRI and Avastin with improvement in her PET scan. She also improvement in her CEA. Since she has been offered chemotherapy, her quality of life has been improving. Her CEA is increasing though. Today, we talked about the possibility of resuming chemotherapy. She really did not tolerate irinotecan very well. 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 There is no evidence of mismatch repair so she is not likely respond to immunotherapy. I think really options would include 5 FU or Xeloda with or without Avastin. She failed to respond, we could consider adding oxaliplatin to the mix. She would likely tolerate that for relatively short appeared of time before neuropathy would get worse. I think either Stivarga or Lonsurf would be poorly tolerated. For now, she would prefer to stick with observation and she feels like her quality of life is quite good and she is not willing to compromise at this time. She will return to clinic here in about a month for follow-up with a repeat CEA and PET scan. If she has obvious progression, she may reconsider chemotherapy. Current visit: No Status: Acute PN -Subjective Interval history: Diagnosis: Metastatic rectal cancer. Her cancer was initially found on screening colonoscopy. KRAS mutation positive. There were no mutations in mismatch repair. Previous treatment: 1. Neoadjuvant chemo radiation with 5 FU finishing in October 2014. 2. Jan with residual ypT1 N0 disease. 3. Twelve cycles of adjuvant FOLFOX completed July 2015 complicated by neuropathy. 4. Recurrence in the left common iliac node surgically resected in August 2016. 5. Additional lymph node recurrences with the rising CEA treated with FOLFIRI and Avastin from June 2017 until December 2017 stopping after 9 cycles because of diarrhea and chemo brain. Interval history: She returns today with her friend, Snehal. Since her last visit here, she has been gradually feeling better. She feels like her strength and energy level have been improving. Her chemo brain has largely resolved. She is no longer having any diarrhea. Her appetite is good. She denies any shortness of breath or cough. No fevers or chills. She is not having any pain. Overall she feels quite well and has no symptoms attributable to her cancer. She does still have some residual neuropathy from her previous oxaliplatin. She describes some numbness in the tips of her fingers and on her feet. It is not painful but is annoying. She has been off of her chemotherapy now for about for 5 months. She is not anxious to resume any treatment. She is planning on returning to [place] the end of July. Past Medical History 5. Endometrial carcinoma, stage IB in 2005, ROSANNE-BSO with no chemotherapy or radiation. 6. ACL repair on the right in the past. 7. Diabetes. Past Surgical History 5. Endometrial carcinoma, stage IB in 2005, ROSANNE-BSO with no chemotherapy or radiation. 6. ACL repair on the right in the past. 7. Diabetes. 8. ROSANNE/BSO - Patient Self-Reported Symptoms SR Constitution: Fatigue/Malaise SR Skin issues: Hair loss or scalp prob, Nail changes SR Gastrointestinal issues: Change in bowel pattern, Diarrhea SR Genitourinary issues: Frequent urination SR Musculoskeletal issues: Muscle weakness, Muscle pain or cramps SR Neuro issues: Numbness or tingling, Difficulty balancing SR Endocrine issues: Cold intolerance Results - Labs Laboratory Last Values WBC 4.7 X10^3/uL (4.5-11.0) 03/17/18 11:09 RBC 4.64 X10^6/uL (4.0-5.2) 03/17/18 11:09 Hgb 12.3 g/dL (12.0-16.0) 03/17/18 11:09 Hct 37.8 % (36-46) 03/17/18 11:09 MCV 81.6 fL (80-100) 03/17/18 11:09 MCH 26.4 PG (26-34) 03/17/18 11:09 MCHC 32.4 % (30-36) 03/17/18 11:09 RDW 16.1 % (11.6-14.8) H 03/17/18 11:09 Plt Count 162 X10^3/uL (150-400) 03/17/18 11:09 Neut % (Auto) 75.5 % (50-75) H 03/17/18 11:09 Lymph % (Auto) 13.9 % (25-40) L 03/17/18 11:09 Villalba % (Auto) 5.9 % (3-14) 03/17/18 11:09 Eos % (Auto) 3.5 % (2-4) 03/17/18 11:09 Baso % (Auto) 1.2 % (0-2) 03/17/18 11:09 Neut # (Auto) 3600 /uL (4842-9062) 03/17/18 11:09 Sodium 141 mmol/L (137-145) 03/17/18 11:09 Potassium 4.5 mmol/L (3.4-5.1) 03/17/18 11:09 Chloride 103 mmol/L (98-107) 03/17/18 11:09 Carbon Dioxide 25 mmol/L (22-32) 03/17/18 11:09 BUN 18 mg/dL (7-17) H 03/17/18 11:09 Creatinine 0.70 mg/dL (0.52-1.04) 03/17/18 11:09 Estimated GFR > 60.0 mL/min (>60) 03/17/18 11:09 BUN/Creatinine Ratio 25.7 (6-22) H 03/17/18 11:09 Glucose 101 mg/dL (80-110) 03/17/18 11:09 Calcium 9.3 mg/dL (8.4-10.2) 03/17/18 11:09 Total Bilirubin 0.8 mg/dL (0.2-1.3) 03/17/18 11:09 AST 49 IU/L (14-36) H 03/17/18 11:09 ALT 21 IU/L (9-52) 03/17/18 11:09 Alkaline Phosphatase 69 U/L (38-126) 03/17/18 11:09 Total Protein 7.3 g/dL (6.3-8.2) 03/17/18 11:09 Albumin 4.2 g/dL (3.5-5.0) 03/17/18 11:09 Globulin 3.1 g/dL (1.7-4.1) 03/17/18 11:09 Albumin/Globulin Ratio 1.4 (1.0-2.8) 03/17/18 11:09 Carcinoembryonic Ag 51.4 ng/mL (0.1-3.0) H 06/02/18 11:37 - Imaging Additional studies: Procedures Closed [endoscopic] biopsy of large intestine (07/20/14) Esophagogastroduodenoscopy [EGD] with closed biopsy (07/20/14) Home Medications and Allergies Home Medications Medication Instructions Recorded Confirmed Type levothyroxine [Synthroid] 0.075 mcg PO QDAY #0 05/27/16 06/08/18 History pantoprazole 40 mg PO BID #0 05/27/16 06/08/18 History naproxen sodium [Aleve] 220 mg PO PRN PRN #0 07/10/16 06/08/18 History lutein-zeaxanthin 1 mg PO QDAY #0 02/17/17 06/08/18 History vitamin B complex [B 1 tab PO QDAY #0 02/17/17 06/08/18 History Complex-Vitamin B12] diphenoxylate-atropine 1 tab PO PRN PRN #30 tab 06/30/17 06/08/18 Rx lorazepam 0.5 mg PO Q6HP PRN #30 tab 06/30/17 06/08/18 Rx ondansetron HCl 8 mg PO Q8H PRN #0 07/15/17 06/08/18 History dextroamphetamine-amphetamine 10 mg PO DAILY 03/17/18 06/08/18 History [Adderall] Cbd Oil drp/day SUBLINGUAL QAM 04/07/18 History Colon Health 2 cap PO QAM 04/07/18 06/08/18 History Tumeric 1 cap PO BID 04/07/18 06/08/18 History alpha lipoic acid 600 mg PO BID 04/07/18 06/08/18 History coenzyme [id number] [Co Q-10 1 tab PO DAILY 04/07/18 06/08/18 History (with Vit E)] lidocaine 1 applic TOPICAL DAILY PRN 04/07/18 06/08/18 History multivitamin 1 tab PO DAILY 04/07/18 06/08/18 History Allergies Allergy/AdvReac Type Severity Reaction Status Date / Time No Known Drug Allergies Allergy Verified 04/07/18 10:26 Exam Vital signs: Last Vital Signs Temp 97.6 F 06/08/18 14:46 Pulse 83 06/08/18 14:46 Resp 15 06/08/18 14:46 BP 130/70 H 06/08/18 14:46 Pulse Ox 99 06/08/18 14:46 - Constitutional positive no acute distress, positive average body habitus - Routine HEENT Exam Head: Present: normocephalic, atraumatic Eye: Present: EOMI, PERRL. Absent: conjunctival icterus, scleral injection ENT: Present: mucous membranes moist, oropharynx clear - Routine Neck Exam Present: supple. Absent: lymphadenopathy, thyromegaly - Routine Respiratory Exam Present: Clear to auscultation bilaterally. Absent: rales, wheezes - Routine Cardiovascular Exam Present: RRR, S1, S2. Absent: murmur - Routine Abdominal Exam Present: soft, normoactive bowel sounds. Absent: tenderness, organomegaly, mass Comments: She does have an ostomy in the left lower quadrant that is functioning well. - Routine Extremities Exam Absent: cyanosis, clubbing, edema - Routine Back/Spine Exam Back/Spine: Absent: paraspinal tenderness, vertebral tenderness - Routine Skin Exam Present: intact. Absent: petechiae, rash - Routine Neurological Exam Present: alert, oriented X3 - Routine Psychiatric Exam Present: normal affect, normal thought process
[2018-06-30 13:49] LABS: Add Manual Diff / Slide Review NO; Basophils Percent Auto 0.9 % (0-2); Eosinophils Percent Auto 2.4 % (2-4); Hematocrit 35.3 % (36-46); Hemoglobin 11.8 g/dL (12.0-16.0); Lymphocytes Percent Auto 10.5 % (25-40); Mean Corpuscular HGB Conc 33.5 % (30-36); Mean Corpuscular Hemoglobin 26.7 PG (26-34); Mean Corpuscular Volume 79.7 fL (80-100); Monocytes Percent Auto 6.3 % (3-14); Neutrophils Absolute Auto 3800 /uL (3000-5900); Neutrophils Percent Auto 79.9 % (50-75); Platelet Count 137 X10^3/uL (150-400); Red Blood Cell Count 4.43 X10^6/uL (4.0-5.2); White Blood Cell Count 4.8 X10^3/uL (4.5-11.0)
[2018-06-30 14:01] LABS: Alanine Aminotransferase 28 IU/L (9-52); Albumin 4.2 g/dL (3.5-5.0); Albumin Globulin Ratio 1.5 (1.0-2.8); Alkaline Phosphatase 80 U/L (38-126); Aspartate Aminotransferase 56 IU/L (14-36); Bilirubin Total 0.8 mg/dL (0.2-1.3); Blood Urea Nitrogen 20 mg/dL (7-17); Calcium 9.3 mg/dL (8.4-10.2); Carbon Dioxide 27 mmol/L (22-32); Chloride 103 mmol/L (98-107); Estimated Glomerular Filt Rate > 60.0 mL/min (>60); Globulin 2.8 g/dL (1.7-4.1); Glucose 88 mg/dL (80-110); HEMOLYSIS < 15 (0-50); Potassium 4.4 mmol/L (3.4-5.1); Sodium 142 mmol/L (137-145)
[2018-06-30 14:32] LABS: Carcinoembryonic Antigen 63.3 ng/mL (0.1-3.0)
--- NOTE | 2018-07-06 14:38 | ONC.NAV ---
Description: Advanced Directives Activity: Provided both the DPOA for Healthcare and the Healthcare Directives forms for pt, per her request. Explained how to complete them, and encouraged her to bring it back when completed, so that we can scan it into our system.
[2018-07-06 14:47] VITALS: BP 123/79; PULSE 81; RESP 17; TEMP 36.7; O2SAT 100
--- NOTE | 2018-07-06 15:07 | ONC.PN ---
PN -Subjective Interval history: Diagnosis: Metastatic rectal cancer. Her cancer was initially found on screening colonoscopy. KRAS mutation positive. There were no mutations in mismatch repair. Previous treatment: 1. Neoadjuvant chemo radiation with 5 FU finishing in October 2014. 2. Jan with residual ypT1 N0 disease. 3. Twelve cycles of adjuvant FOLFOX completed July 2015 complicated by neuropathy. 4. Recurrence in the left common iliac node surgically resected in August 2016. 5. Additional lymph node recurrences with the rising CEA treated with FOLFIRI and Avastin from June 2017 until December 2017 stopping after 9 cycles because of diarrhea and chemo brain. Interval history: She returns today with her friend, Snehal. Since her last visit here, she has been feeling generally well. She denies any new aches or pains. No fevers chills or sweats. Appetite and energy level have been good. Bowels have been moving normally. She still has some residual neuropathy left over from her previous FOLFOX but it has not gotten any worse. She feels like her chemo brain has continued to improve. Overall, she feels quite well. Past Medical History 5. Endometrial carcinoma, stage IB in 2006, ROSANNE-BSO with no chemotherapy or radiation. 6. ACL repair on the right in the past. 7. Diabetes. Past Surgical History 5. Endometrial carcinoma, stage IB in 2006, ROSANNE-BSO with no chemotherapy or radiation. 6. ACL repair on the right in the past. 7. Diabetes. 8. ROSANNE/BSO - Patient Self-Reported Symptoms SR Constitution: Fatigue/Malaise SR Skin issues: Hair loss or scalp prob, Nail changes SR Gastrointestinal issues: Change in bowel pattern, Diarrhea SR Genitourinary issues: Frequent urination SR Musculoskeletal issues: Muscle weakness, Muscle pain or cramps SR Neuro issues: Numbness or tingling, Difficulty balancing SR Endocrine issues: Cold intolerance Home Medications and Allergies Home Medications Medication Instructions Recorded Confirmed Type levothyroxine [Synthroid] 0.075 mcg PO QDAY #0 05/27/16 06/08/18 History pantoprazole 40 mg PO BID #0 05/27/16 06/08/18 History naproxen sodium [Aleve] 220 mg PO PRN PRN #0 07/10/16 06/08/18 History lutein-zeaxanthin 1 mg PO QDAY #0 02/17/17 06/08/18 History vitamin B complex [B 1 tab PO QDAY #0 02/17/17 06/08/18 History Complex-Vitamin B12] diphenoxylate-atropine 1 tab PO PRN PRN #30 tab 06/30/17 06/08/18 Rx lorazepam 0.5 mg PO Q6HP PRN #30 tab 06/30/17 06/08/18 Rx ondansetron HCl 8 mg PO Q8H PRN #0 07/15/17 06/08/18 History dextroamphetamine-amphetamine 10 mg PO DAILY 03/17/18 06/08/18 History [Adderall] Cbd Oil drp/day SUBLINGUAL QAM 04/07/18 History Colon Health 2 cap PO QAM 04/07/18 06/08/18 History Tumeric 1 cap PO BID 04/07/18 06/08/18 History alpha lipoic acid 600 mg PO BID 04/07/18 06/08/18 History coenzyme [id number] [Co Q-10 1 tab PO DAILY 04/07/18 06/08/18 History (with Vit E)] lidocaine 1 applic TOPICAL DAILY PRN 04/07/18 06/08/18 History multivitamin 1 tab PO DAILY 04/07/18 06/08/18 History Allergies Allergy/AdvReac Type Severity Reaction Status Date / Time No Known Drug Allergies Allergy Verified 04/07/18 10:26 Exam Vital signs: Last Vital Signs Temp 98.0 F 07/06/18 14:47 Pulse 81 07/06/18 14:47 Resp 17 07/06/18 14:47 BP 123/79 07/06/18 14:47 Pulse Ox 100 07/06/18 14:47 - Constitutional positive no acute distress, positive average body habitus Results - Labs Laboratory Last Values WBC 4.8 X10^3/uL (4.5-11.0) 06/30/18 13:34 RBC 4.43 X10^6/uL (4.0-5.2) 06/30/18 13:34 Hgb 11.8 g/dL (12.0-16.0) L 06/30/18 13:34 Hct 35.3 % (36-46) L 06/30/18 13:34 MCV 79.7 fL (80-100) L 06/30/18 13:34 MCH 26.7 PG (26-34) 06/30/18 13:34 MCHC 33.5 % (30-36) 06/30/18 13:34 RDW 17.0 % (11.6-14.8) H 06/30/18 13:34 Plt Count 137 X10^3/uL (150-400) L 06/30/18 13:34 Neut % (Auto) 79.9 % (50-75) H 06/30/18 13:34 Lymph % (Auto) 10.5 % (25-40) L 06/30/18 13:34 [place] % (Auto) 6.3 % (3-14) 06/30/18 13:34 Eos % (Auto) 2.4 % (2-4) 06/30/18 13:34 Baso % (Auto) 0.9 % (0-2) 06/30/18 13:34 Neut # (Auto) 3800 /uL (9939-8370) 06/30/18 13:34 Sodium 142 mmol/L (137-145) 06/30/18 13:34 Potassium 4.4 mmol/L (3.4-5.1) 06/30/18 13:34 Chloride 103 mmol/L (98-107) 06/30/18 13:34 Carbon Dioxide 27 mmol/L (22-32) 06/30/18 13:34 BUN 20 mg/dL (7-17) H 06/30/18 13:34 Creatinine 0.80 mg/dL (0.52-1.04) 06/30/18 13:34 Estimated GFR > 60.0 mL/min (>60) 06/30/18 13:34 BUN/Creatinine Ratio 25.0 (6-22) H 06/30/18 13:34 Glucose 88 mg/dL (80-110) 06/30/18 13:34 Calcium 9.3 mg/dL (8.4-10.2) 06/30/18 13:34 Total Bilirubin 0.8 mg/dL (0.2-1.3) 06/30/18 13:34 AST 56 IU/L (14-36) H 06/30/18 13:34 ALT 28 IU/L (9-52) 06/30/18 13:34 Alkaline Phosphatase 80 U/L (38-126) 06/30/18 13:34 Total Protein 7.0 g/dL (6.3-8.2) 06/30/18 13:34 Albumin 4.2 g/dL (3.5-5.0) 06/30/18 13:34 Globulin 2.8 g/dL (1.7-4.1) 06/30/18 13:34 Albumin/Globulin Ratio 1.5 (1.0-2.8) 06/30/18 13:34 Carcinoembryonic Ag 63.3 ng/mL (0.1-3.0) H 06/30/18 13:34 - Imaging Additional studies: Procedures Closed [endoscopic] biopsy of large intestine (07/20/14) Esophagogastroduodenoscopy [EGD] with closed biopsy (07/20/14) Assessment and Plan (1) Malignant neoplasm of rectum Problem details: 68-year-old woman with oligo metastatic rectal cancer. She has been off of her chemotherapy now for about 4 months and has been feeling better since then. She currently has no symptoms attributable to her cancer. Her PET-CT shows only a solitary lymph node in the external iliac chain on the left. It measures 1.6 cm with an SUV of 9. This is similar to the status of her disease about a year ago. At that time, she was not felt to be a candidate for either additional radiation or surgery. However, if either of those are feasible I think they are likely to provide better control of her disease then more chemotherapy. She is traveling to [place] for the winter in the next several weeks. She would like referral to the [facility] in [place]. I think would be helpful to be evaluated there to see if any local therapies might be an option. If no local therapy is feasible, then additional chemotherapy certainly could be considered. 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 I think that could be considered. I have not scheduled appointment for her here. I would be happy see her back when she returns in the spring. Current visit: No Status: Acute
== END 2018-07-07 12:00 ==
PROVIDERS: Internal Medicine Hematology & Oncology; Family Provider Internal Medicine; PCP Internal Medicine; Visit Provider Nurse Practitioner Gerontology
DX: C20 Malignant neoplasm of rectum (principal); Z85.42 Personal history of malignant neoplasm of other parts of uterus
CPT/HCPCS: 36592; 80053; 82378; 85025; 99214; 99215

== ENCOUNTER 2019-03-14 11:14 | Emergency (ER) | payer MEDICARE, SELFPAY ==
[2019-03-14 11:19] VITALS: BP 158/80; PULSE 94; RESP 16; TEMP 36.7; O2SAT 100; BMI 27.8
--- NOTE | 2019-03-14 11:31 | ED_ITS ---
HPI - Abdominal Pain <Kyra HawkinsSEAN lernerP-BC - Last Filed: 03/14/19 21:19> General Chief Complaint: Abdominal Pain Stated Complaint: Bowl obstruction/vomiting Time Seen by Provider: 03/14/19 11:16 Source: patient and family Mode of arrival: ambulatory Limitations: no limitations History of Present Illness HPI narrative: The patient is a 69-year-old female nonsmoker with history of metastatic colon cancer who presents with a chief complaint of vomiting since midnight concern of a small-bowel obstruction. She states she has history of a partial small bowel obstruction and states that her intestines were so swollen that they were shut off. She states she has vomited twice since midnight. She has not taken anything for the vomiting. She does have a colostomy, states she is passing gas. She states she had some diarrhea yesterday. She did take Imodium last night. She denies any fevers chest pain shortness of breath cough cold congestion. She states that she has had about 10 days of increased gas indigestion symptoms. Related Data Home Medications Medication Instructions Recorded Confirmed levothyroxine [Synthroid] 0.075 mcg PO QDAY #0 05/27/16 07/06/18 pantoprazole 40 mg PO BID #0 05/27/16 07/06/18 naproxen sodium [Aleve] 220 mg PO PRN PRN #0 07/10/16 07/06/18 lutein-zeaxanthin 1 mg PO QDAY #0 02/17/17 07/06/18 vitamin B complex [B 1 tab PO QDAY #0 02/17/17 07/06/18 Complex-Vitamin B12] ondansetron HCl 8 mg PO Q8H PRN #0 07/15/17 07/06/18 dextroamphetamine-amphetamine 10 mg PO DAILY 03/17/18 07/06/18 [Adderall] Cbd Oil 1 drp/day SUBLINGUAL QAM 04/07/18 07/06/18 Colon Health 2 cap PO QAM 04/07/18 07/06/18 Tumeric 1 cap PO BID 04/07/18 07/06/18 alpha lipoic acid 600 mg PO BID 04/07/18 07/06/18 coenzyme [id number] [Co Q-10 1 tab PO DAILY 04/07/18 07/06/18 (with Vit E)] lidocaine 1 applic TOPICAL DAILY PRN 04/07/18 07/06/18 multivitamin 1 tab PO DAILY 04/07/18 07/06/18 Previous Rx's Medication Instructions Recorded diphenoxylate-atropine 1 tab PO PRN PRN #30 tab 06/30/17 lorazepam 0.5 mg PO Q6HP PRN #30 tab 06/30/17 nitrofurantoin monohyd/m-cryst 100 mg PO BID #10 cap 03/14/19 [Macrobid] ondansetron 4 mg PO TID-QID PRN #30 tab 03/14/19 Allergies Allergy/AdvReac Type Severity Reaction Status Date / Time celecoxib [From Celebrex] Allergy Verified 03/14/19 11:19 Review of Systems <LATOYA Trinidad - Last Filed: 03/14/19 21:19> Review of Systems GENERAL: Denies chills, fatigue, malaise, fever, sweats. HEENT: Denies sinus pain, ear pain, sore throat, difficulty swallowing, dizziness. RESPIRATORY: Denies dyspnea, cough, wheezing, hemoptysis, sputum. CARDIOVASCULAR: Denies chest pain, palpitations, orthopnea, edema, GASTROINTESTINAL: See HPI : Denies dysuria, frequency, incontinence, hematuria, urinary retention. MUSCULOSKELETAL: denies weakness, joint pain, or bony pain SKIN: Denies rash, skin lesions, or other NEUROLOGIC: Denies weakness, headache, numbness, change in speech, confusion, seizures, incoordination. PSYCHIATRIC: No concerning psychosocial issues. 12 point review of systems is negative except for those stated above PFSH <LATOYA Trinidad - Last Filed: 03/14/19 21:19> Surgical History Status post appendectomy Status post arthroscopy Status post hysterectomy with oophorectomy Exam <LATOYA Trinidad - Last Filed: 03/14/19 21:19> Narrative Exam Narrative: GENERAL: This is a well-nourished, well-developed patient, no acute distress HEAD: Atraumatic. Normocephalic. No temporal or scalp tenderness. EYES: Pupils equal round and reactive. Extraocular motions intact. No scleral icterus. No injection or drainage. ENT: Nose without bleeding, purulent drainage or septal hematoma. Throat without erythema, tonsillar hypertrophy or exudate. Uvula midline. Airway patent. NECK: Trachea midline. No JVD or lymphadenopathy. Supple, nontender, no meningeal signs. CARDIOVASCULAR: Regular rate and rhythm without murmurs, gallops, or rubs. RESPIRATORY: Clear to auscultation. Breath sounds equal bilaterally. No wheezes, rales, or rhonchi. No cough. No increased respiratory effort. No accessory muscle use. No retractions. GASTROINTESTINAL: Abdomen soft, non-tender, nondistended. No hepato- splenomegaly, or palpable masses. No guarding. Active bowel sounds all 4 quadrants. Colostomy bag in place. EXTREMITIES: No clubbing, cyanosis, or edema. No joint tenderness, effusion, or edema noted. BACK: Nontender without deformity or crepitance. No flank tenderness. NEURO: AOx3. SKIN: No rash or erythema. Initial Vital Signs Initial Vital Signs: Vital Signs Temperature 98.1 F 03/14/19 11:19 Pulse Rate 94 H 03/14/19 11:19 Respiratory Rate 16 03/14/19 11:19 Blood Pressure 158/80 H 03/14/19 11:19 Pulse Oximetry 100 03/14/19 11:19 <Kyra Lin DO - Last Filed: 03/16/19 07:18> Initial Vital Signs Initial Vital Signs: Vital Signs Temperature 98.1 F 03/14/19 11:19 Pulse Rate 94 H 03/14/19 11:19 Respiratory Rate 16 03/14/19 11:19 Blood Pressure 158/80 H 03/14/19 11:19 Pulse Oximetry 100 03/14/19 11:19 Course <MIMI Trinidad-BC - Last Filed: 03/14/19 21:19> Orders Ordered: Discontinued Medications Sodium Chloride (Normal Saline 0.9%) 1,000 mls @ 150 mls/hr IV CONT RAQUEL Last Infusion: 03/14/19 17:53 Dose: 0 mls/hr Admin: 03/14/19 11:50 Dose: 150 mls/hr Ondansetron HCl (Zofran Odt) 4 mg SL NOW ONE Stop: 03/14/19 16:22 Last Admin: 03/14/19 16:30 Dose: 4 mg Potassium Chloride (Potassium Chloride) 40 meq PO NOW ONE Stop: 03/14/19 15:44 Last Admin: 03/14/19 15:50 Dose: 40 meq Simethicone (Mylicon) 80 mg PO QID PRN PRN Reason: Flatulence Last Admin: 03/14/19 16:30 Dose: 80 mg Vital Signs - 8 hr 03/14/19 13:59 03/14/19 14:35 03/14/19 15:30 Temperature Pulse Rate 90 82 83 Respiratory Rate 14 17 16 Blood Pressure [Right Arm] 152/92 H 155/78 H 132/72 Pulse Oximetry 98 100 99 03/14/19 16:25 03/14/19 17:11 Temperature 98.7 F Pulse Rate 89 85 Respiratory Rate 20 18 Blood Pressure [Right Arm] 153/76 H 146/77 H Pulse Oximetry 99 100 <Kyra Lin DO - Last Filed: 03/16/19 07:18> Orders Ordered: Discontinued Medications Sodium Chloride (Normal Saline 0.9%) 1,000 mls @ 150 mls/hr IV CONT RAQUEL Last Infusion: 03/14/19 17:53 Dose: 0 mls/hr Admin: 03/14/19 11:50 Dose: 150 mls/hr Ondansetron HCl (Zofran Odt) 4 mg SL NOW ONE Stop: 03/14/19 16:22 Last Admin: 03/14/19 16:30 Dose: 4 mg Potassium Chloride (Potassium Chloride) 40 meq PO NOW ONE Stop: 03/14/19 15:44 Last Admin: 03/14/19 15:50 Dose: 40 meq Simethicone (Mylicon) 80 mg PO QID PRN PRN Reason: Flatulence Last Admin: 03/14/19 16:30 Dose: 80 mg Vital Signs - 8 hr 03/14/19 13:59 03/14/19 14:35 03/14/19 15:30 Temperature Pulse Rate 90 82 83 Respiratory Rate 14 17 16 Blood Pressure [Right Arm] 152/92 H 155/78 H 132/72 Pulse Oximetry 98 100 99 03/14/19 16:25 03/14/19 17:11 Temperature 98.7 F Pulse Rate 89 85 Respiratory Rate 20 18 Blood Pressure [Right Arm] 153/76 H 146/77 H Pulse Oximetry 99 100 MDM - Abdominal Pain <Kyra Godinez LIBRARY HELPER-BC - Last Filed: 03/14/19 21:19> Lab Data Result diagrams: 03/14/19 11:50 03/14/19 11:50 Lab Results 03/14/19 03/14/19 03/14/19 Range/Units 11:50 11:50 12:57 WBC 6.3 (4.5-11.0) X10^3/uL RBC 4.59 (4.0-5.2) X10^6/uL Hgb 11.5 L (12.0-16.0) g/dL Hct 35.0 L (36-46) % MCV 76.2 L (80-100) fL MCH 25.1 L (26-34) PG MCHC 33.0 (30-36) % RDW 15.5 H (11.6-14.8) % Plt Count 188 (150-400) X10^3/uL Neut % (Auto) 82.4 H (50-75) % Lymph % (Auto) 8.4 L (25-40) % [place] % (Auto) 6.7 (3-14) % Eos % (Auto) 1.7 L (2-4) % Baso % (Auto) 0.8 (0-2) % Neut # (Auto) 5200 (1543-7338) /uL Lymph # (Auto) 500 L (6556-3481) /uL [place] # (Auto) 400 (0-900) /uL Eos # (Auto) 100 (0-450) /uL Baso # (Auto) 100 (0-100) /uL Sodium 138 (137-145) mmol/L Potassium 3.0 L (3.4-5.1) mmol/L Chloride 97 L (98-107) mmol/L Carbon Dioxide 28 (22-32) mmol/L BUN 13 (7-17) mg/dL Creatinine 0.90 (0.52-1.04) mg/dL Estimated GFR > 60.0 (>60) mL/min BUN/Creatinine Ratio 14.4 (6-22) Glucose 99 (80-110) mg/dL Calcium 9.9 (8.4-10.2) mg/dL Total Bilirubin 1.0 (0.2-1.3) mg/dL AST 67 H (14-36) IU/L ALT 23 (9-52) IU/L Alkaline Phosphatase 99 (38-126) U/L Total Protein 7.6 (6.3-8.2) g/dL Albumin 4.2 (3.5-5.0) g/dL Globulin 3.4 (1.7-4.1) g/dL Albumin/Globulin Ratio 1.2 (1.0-2.8) Amylase 96 (30-110) U/L Lipase 59 (23-300) U/L Urine RBC 1-5/hpf (0-5/HPF) Urine WBC 5-10/hpf H (0-5/HPF) Ur Squamous Epith Cells 5-10 /hpf H (0-5/HPF) Amorphous Sediment 1+ Urine Bacteria Few (2-10) H (None) Urine Mucus 1+ H (Negative) Ur Culture Indicated? Specimen cultured Point of care testing: Urine Dip Bedside Urine Glucose Negative Bedside Urine Bilirubin + 1 Bedside Urine Ketone ++ 40 Urine Specific [place] 1.015 Bedside Urine Occult Blood +/- Bedside Urine Protein + 30 Bedside Urine Urobilinogen +/- 1mg Bedside Urine Nitrite - Negative Bedside Urine Leukocytes +/- [address] scan - abdomen: Radiologist's impression: MaceyGlenysKari J 69 F [address] [place] [address] CT Scan Report Signed Patient: Kari Choudhury JMR#: [id number] : 8Acct:[id number] Age/Sex: 69 / FDate of Service: 03/14/19 Loc: ED Accession Number: [id number] Procedure: CT abdomen pelvis w con Ordering Provider: Kyra Godinez LIBRARY HELPER- PROCEDURE: CT ABDOMEN PELVIS W CON INDICATIONS: vomiting, abd pain, hx ca TECHNIQUE: After the administration of intravenous contrast, 5 mm thick sections acquired from the diaphragm to the symphysis. 5 mm coronal and sagittal reformats were acquired. For radiation dose reduction, the following was used: automated exposure control, adjustment of mA and/or kV according to patient size. COMPARISON: [facility], [place], PET NECK TO MID THIGH, 07/05/2018, 9:07. [facility], [place], CHEST/ABD/PEL WITH CONTRAST, 04/09/2017, 9:42[facility], [place], ABDOMEN/PELVIS WITH CONTRAST, 07/09/2016, 9:14. FINDINGS: Image quality: There is streak artifact from patient's left hip prosthesis.. ABDOMEN: Lung bases: There is mild scarring redemonstrated in the lung bases. There is a small nodule within the inferior lobe measuring approximately 4 mm which appears unchanged. Heart size is normal. A moderate to large hiatal hernia is demonstrated, increased in size from the prior 2017 study. Solid organs: Evaluation of the liver demonstrates multiple new hypoattenuating mass lesions with the largest in segment 4B of the left hepatic lobe measuring up to 2.3 x 2.3 cm in transverse dimension. There are a few dependent calcified gallstones in the gallbladder without wall thickening. There is mild biliary duct dilatation, with the common bile duct measuring up to approximately 1.0 cm distally. There is mild soft tissue fullness at the ampulla of Vater without a calcified common duct stone. The pancreatic duct is nondistended. Pancreas enhances normally. No peripancreatic fat stranding or fluid collections. The spleen is normal in size. No adrenal nodules. There is new moderate left hydroureteronephrosis secondary to obstruction at the level of the distal left ureter. There are adjacent surgical clips as well as increased soft tissue fullness suggestive of recurrent stephanie disease. No right hydronephrosis. Peritoneum and bowel: There are extensive new mesenteric and omental soft tissue nodules and masses as well as new ascites consistent with peritoneal carcinomatosis. There is fluid distention of small bowel loops with multiple air-fluid levels extending to the pelvis were there is a transition point in the left lower quadrant associated with irregular soft tissue. The findings are compatible with a small bowel obstruction secondary to a peritoneal implant. There are postsurgical changes redemonstrated consistent a prior distal colectomy with a diverting left lower quadrant colostomy. There is mild wall thickening of multiple colonic segments suggestive of an mild colitis. No evidence of colonic obstruction. The colostomy is normal in caliber. Nodes and vessels: There are postsurgical changes consistent of prior lymph node dissection in the retroperitoneum with surgical clips demonstrated bilaterally in the pelvis. There is increased irregular soft tissue along the surgical clips adjacent to the left common iliac vessels. There is also increased abnormal soft tissue in the left hemipelvis along the left external iliac vessels. Findings are consistent with metastatic disease. There is a vascular stent, likely within the left common iliac vein which appears compressed at its proximal and distal ends. Aorta and inferior vena cava are normal in size. Miscellaneous: No ventral hernias. PELVIS: Genitourinary: Bladder wall thickness is normal. Miscellaneous: There is irregular presacral soft tissue thickening which appears increased from the prior studies and likely represents recurrent disease. This extends to the posterior vaginal wall suggestive of invasion. No inguinal hernias or adenopathy. Bones: There is a new lytic bony lesion within the left anterior aspect of the L4 vertebral body consistent with metastatic disease. No vertebral body compression fractures. IMPRESSION: 1. Findings consistent with extensive progression of metastatic disease including peritoneal carcinomatosis, liver metastases, stephanie metastases in the retroperitoneum and pelvis, increased presacral soft tissue, and osseous metastases. 2. Small bowel obstruction demonstrated likely secondary to peritoneal implants in the left lower quadrant. 3. 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 4. Increased presacral soft tissue likely representing recurrent disease with associated suspect invasion of the posterior vaginal wall. Findings discussed with Kyra Godinez on 03/14/19 at 1:20 PM. Dictated by: Geoff Berry M.D. on 03/14/2019 at 13:07 Approved by: Geoff Berry M.D. on 03/14/2019 at 13:38 MDM Narrative Medical decision making narrative: The patient is a 69-year-old female with a complicated medical history including rectal cancer with metastasis. She presents with a chief complaint of vomiting at midnight, and concern of a bowel obstruction. CT reveals much cancer metastasis, including to the liver, lymph nodes, bone etc. She also has a small bowel obstruction who due to peritoneal carcinomatosis. I spoke with Dr. Irene from general surgery, who states that the patient is not a candidate for surgical intervention at this time given her significant metastatic disease. He did discuss that sending the patient home with conservative measures could be appropriate if she is not vomiting in the emergency department. I spoke with Dr. Grewal, the patient's oncologist, who recommended bringing the patient inpatient for conservative measures and IV fluids. I spoke with Dr. Louise, who stated that the patient could come in if she needs inpatient therapy such as an NG tube or vomiting. However the patient was without acute distress during her stay in the emergency department. She was able to tolerate oral fluids well, replace her potassium etc. She has not vomited throughout her stay in the emergency department. I spoke with the on- call physician for her oncologist, to ensure that the patient would have close follow-up within the next few days. They plan on calling her tomorrow. I did give the patient a prescription of Zofran. I started her on Macrobid given e vidence of urinary tract infection. However the patient was without vomiting throughout her stay in the emergency department, despite taking oral potassium as well as fluids. The patient does have significant metastatic disease, and would likely benefit from case management and/or palliative/hospice referral. She did not appear ready for hospice at this point time and would consider procedures to help improve pain etc. I did discuss with the patient strict return precautions for any acute symptoms such as inability keep down fluids, abdominal pain etc. Patient states understanding and states that she lives just a few minutes away and has no difficulty getting back if necessary. Records were obtained from her primary oncologist in [place]. No questions or concerns upon discharge. The patient ambulated outside of the emergency department with a steady gait. <Kyra Lin, DO - Last Filed: 03/16/19 07:18> Lab Data Lab Results 03/14/19 03/14/19 03/14/19 Range/Units 11:50 11:50 12:57 WBC 6.3 (4.5-11.0) X10^3/uL RBC 4.59 (4.0-5.2) X10^6/uL Hgb 11.5 L (12.0-16.0) g/dL Hct 35.0 L (36-46) % MCV 76.2 L (80-100) fL MCH 25.1 L (26-34) PG MCHC 33.0 (30-36) % RDW 15.5 H (11.6-14.8) % Plt Count 188 (150-400) X10^3/uL Neut % (Auto) 82.4 H (50-75) % Lymph % (Auto) 8.4 L (25-40) % [place] % (Auto) 6.7 (3-14) % Eos % (Auto) 1.7 L (2-4) % Baso % (Auto) 0.8 (0-2) % Neut # (Auto) 5200 (1030-8974) /uL Lymph # (Auto) 500 L (5620-6176) /uL [place] # (Auto) 400 (0-900) /uL Eos # (Auto) 100 (0-450) /uL Baso # (Auto) 100 (0-100) /uL Sodium 138 (137-145) mmol/L Potassium 3.0 L (3.4-5.1) mmol/L Chloride 97 L (98-107) mmol/L Carbon Dioxide 28 (22-32) mmol/L BUN 13 (7-17) mg/dL Creatinine 0.90 (0.52-1.04) mg/dL Estimated GFR > 60.0 (>60) mL/min BUN/Creatinine Ratio 14.4 (6-22) Glucose 99 (80-110) mg/dL Calcium 9.9 (8.4-10.2) mg/dL Total Bilirubin 1.0 (0.2-1.3) mg/dL AST 67 H (14-36) IU/L ALT 23 (9-52) IU/L Alkaline Phosphatase 99 (38-126) U/L Total Protein 7.6 (6.3-8.2) g/dL Albumin 4.2 (3.5-5.0) g/dL Globulin 3.4 (1.7-4.1) g/dL Albumin/Globulin Ratio 1.2 (1.0-2.8) Amylase 96 (30-110) U/L Lipase 59 (23-300) U/L Urine RBC 1-5/hpf (0-5/HPF) Urine WBC 5-10/hpf H (0-5/HPF) Ur Squamous Epith Cells 5-10 /hpf H (0-5/HPF) Amorphous Sediment 1+ Urine Bacteria Few (2-10) H (None) Urine Mucus 1+ H (Negative) Ur Culture Indicated? Specimen cultured Point of care testing: Urine Dip Bedside Urine Glucose Negative Bedside Urine Bilirubin + 1 Bedside Urine Ketone ++ 40 Urine Specific [place] 1.015 Bedside Urine Occult Blood +/- Bedside Urine Protein + 30 Bedside Urine Urobilinogen +/- 1mg Bedside Urine Nitrite - Negative Bedside Urine Leukocytes +/- 15 Esterase Discharge Plan Departure Patient Disposition: Home Clinical Impression: Rectal cancer, Acute UTI Vomiting Qualifiers: Vomiting type: unspecified Vomiting Intractability: non-intractable Nausea presence: with nausea Qualified Code(s): R11.2 - Nausea with vomiting, unspecified Abdominal pain Qualifiers: Abdominal location: generalized Qualified Code(s): R10.84 - Generalized a bdominal pain Discharge Date/Time: 03/14/19 17:55 Interventions: ED Discharge Assessment Last Done: 03/14/19 17:55 Instructions: DI for Small Bowel Obstruction, DI for Urinary Tract Infection (UTI), DI for Abdominal Pain-Adult, DI for Vomiting -- Adult Activity Restrictions/Additional Instructions: As we discussed today, your imaging is concerning for further metastasis. It is concerning for a bowel obstruction caused by this metastasi. I have spoken with our hospitalist, Dr. Grewal, as well as our surgeon. They state that if you can tolerate fluids, you can go home. I have given you a prescription of Zofran for nausea as well as Macrobid for urinary tract infection. Please take small sips of water frequently. Please come back to the emergency department for any acute concerns such as inability to keep down fluids. I spoke with the on-call for your oncologist, and they will be calling you tomorrow. Please do not hesitate to come back to the emergency department for any acute concerns. Prescriptions: New ondansetron 4 mg tablet,disintegrating 4 mg PO TID-QID PRN (Reason: nausea and vomiting) Qty: 30 RF: 0 nitrofurantoin monohyd/m-cryst [Macrobid] 100 mg capsule 100 mg PO BID Qty: 10 RF: 0 No Action levothyroxine [Synthroid] 75 MCG tablet 0.075 mcg PO QDAY Qty: 0 RF: 0 pantoprazole 40 MG tablet,delayed release (DR/EC) 40 mg PO BID Qty: 0 RF: 0 naproxen sodium [Aleve] 220 MG capsule 220 mg PO PRN PRN (Reason: Pain (Scale Score 1-3)) Qty: 0 RF: 0 lutein-zeaxanthin 1 EACH capsule 1 mg PO QDAY Qty: 0 RF: 0 vitamin B complex [B Complex-Vitamin B12] 1 EACH tablet 1 tab PO QDAY Qty: 0 RF: 0 lorazepam 0.5 MG tablet 0.5 mg PO Q6HP PRNQty: 30 RF: 0 diphenoxylate-atropine 2.5 MG/0.025 MG tablet 1 tab PO PRN PRNQty: 30 RF: 0 ondansetron HCl 8 MG tablet 8 mg PO Q8H PRN (Reason: Nausea) Qty: 0 RF: 0 dextroamphetamine-amphetamine [Adderall] 10 mg Tablet 10 mg PO DAILY RF: 0 multivitamin Tablet 1 tab PO DAILY RF: 0 coenzyme [id number] E [Co Q-10 (with Vit E)] 50-5 mg-unit Capsule 1 tab PO DAILY RF: 0 Colon Health 2 cap PO QAM RF: 0 Tumeric 1 cap PO BID RF: 0 alpha lipoic acid 600 mg Capsule 600 mg PO BID RF: 0 lidocaine 3.75 % Cream 1 applic TOPICAL DAILY PRN (Reason: Pain (Scale Score 1-3)) RF: 0 Cbd Oil 1 drp/day Sublingual QAM RF: 0 Referrals: Jose M Wilkins [Primary Care Provider] - <Kyra Lin DO - Last Filed: 03/16/19 07:18> Cosign ED Attending Cosignature Attestation: I was immediately available in the department for consultation, case was discussed. Initially plan for admission and was discussed with general surgery and hospitalist. Patient tolerating orals. This documentation has been reviewed and I agree with assessment and plan. Supervised by Kyra Lin DO
[2019-03-14] MEDS: SODIUM CHLORIDE 0.9% 1,000 ML 150 ML IV (11:50)
[2019-03-14 11:56] LABS: Add Manual Diff / Slide Review NO; Basophils Absolute Auto 100 /uL (0-100); Basophils Percent Auto 0.8 % (0-2); Eosinophils Absolute Auto 100 /uL (0-450); Eosinophils Percent Auto 1.7 % (2-4); Hemoglobin 11.5 g/dL (12.0-16.0); Lymphocytes Absolute Auto 500 /uL (1100-4500); Lymphocytes Percent Auto 8.4 % (25-40); Mean Corpuscular Hemoglobin 25.1 PG (26-34); Mean Corpuscular Volume 76.2 fL (80-100); Monocytes Absolute Auto 400 /uL (0-900); Monocytes Percent Auto 6.7 % (3-14); Neutrophils Absolute Auto 5200 /uL (1500-7000); Neutrophils Percent Auto 82.4 % (50-75); Platelet Count 188 X10^3/uL (150-400); Red Blood Cell Count 4.59 X10^6/uL (4.0-5.2); Red Cell Distribution Width 15.5 % (11.6-14.8); White Blood Cell Count 6.3 X10^3/uL (4.5-11.0)
[2019-03-14 12:08] LABS: Alanine Aminotransferase 23 IU/L (9-52); Albumin 4.2 g/dL (3.5-5.0); Albumin Globulin Ratio 1.2 (1.0-2.8); Alkaline Phosphatase 99 U/L (38-126); Amylase 96 U/L (30-110); Aspartate Aminotransferase 67 IU/L (14-36); BUN Creatinine Ratio 14.4 (6-22); Blood Urea Nitrogen 13 mg/dL (7-17); Calcium 9.9 mg/dL (8.4-10.2); Carbon Dioxide 28 mmol/L (22-32); Chloride 97 mmol/L (98-107); Estimated Glomerular Filt Rate > 60.0 mL/min (>60); Globulin 3.4 g/dL (1.7-4.1); Glucose 99 mg/dL (80-110); HEMOLYSIS < 15 (0-50); Lipase 59 U/L (23-300); Sodium 138 mmol/L (137-145); Total Protein 7.6 g/dL (6.3-8.2)
--- NOTE | 2019-03-14 12:26 | DI.CT.S_ITS ---
PROCEDURE: CT ABDOMEN PELVIS W CON INDICATIONS: vomiting, abd pain, hx ca TECHNIQUE: After the administration of intravenous contrast, 5 mm thick sections acquired from the diaphragm to the symphysis. 5 mm coronal and sagittal reformats were acquired. For radiation dose reduction, the following was used: automated exposure control, adjustment of mA and/or kV according to patient size. COMPARISON: [facility], [place], PET NECK TO MID THIGH, 07/05/2018, 9:07. [facility], [place], CHEST/ABD/PEL WITH CONTRAST, 04/09/2017, 9:42. [facility], CT, ABDOMEN/PELVIS WITH CONTRAST, 07/09/2016, 9:14. FINDINGS: Image quality: There is streak artifact from patient's left hip prosthesis.. ABDOMEN: Lung bases: There is mild scarring redemonstrated in the lung bases. There is a small nodule within the inferior lobe measuring approximately 4 mm which appears unchanged. Heart size is normal. A moderate to large hiatal hernia is demonstrated, increased in size from the prior 2017 study. Solid organs: Evaluation of the liver demonstrates multiple new hypoattenuating mass lesions with the largest in segment 4B of the left hepatic lobe measuring up to 2.3 x 2.3 cm in transverse dimension. There are a few dependent calcified gallstones in the gallbladder without wall thickening. There is mild biliary duct dilatation, with the common bile duct measuring up to approximately 1.0 cm distally. There is mild soft tissue fullness at the ampulla of Vater without a calcified common duct stone. The pancreatic duct is nondistended. Pancreas enhances normally. No peripancreatic fat stranding or fluid collections. The spleen is normal in size. No adrenal nodules. There is new moderate left hydroureteronephrosis secondary to obstruction at the level of the distal left ureter. There are adjacent surgical clips as well as increased soft tissue fullness suggestive of recurrent stephanie disease. No right hydronephrosis. Peritoneum and bowel: There are extensive new mesenteric and omental soft tissue nodules and masses as well as new ascites consistent with peritoneal carcinomatosis. There is fluid distention of small bowel loops with multiple air-fluid levels extending to the pelvis were there is a transition point in the left lower quadrant associated with irregular soft tissue. The findings are compatible with a small bowel obstruction secondary to a peritoneal implant. There are postsurgical changes redemonstrated consistent a prior distal colectomy with a diverting left lower quadrant colostomy. There is mild wall thickening of multiple colonic segments suggestive of an mild colitis. No evidence of colonic obstruction. The colostomy is normal in caliber. Nodes and vessels: There are postsurgical changes consistent of prior lymph node dissection in the retroperitoneum with surgical clips demonstrated bilaterally in the pelvis. There is increased irregular soft tissue along the surgical clips adjacent to the left common iliac vessels. There is also increased abnormal soft tissue in the left hemipelvis along the left external iliac vessels. Findings are consistent with metastatic disease. There is a vascular stent, likely within the left common iliac vein which appears compressed at its proximal and distal ends. Aorta and inferior vena cava are normal in size. Miscellaneous: No ventral hernias. PELVIS: Genitourinary: Bladder wall thickness is normal. Miscellaneous: There is irregular presacral soft tissue thickening which appears increased from the prior studies and likely represents recurrent disease. This extends to the posterior vaginal wall suggestive of invasion. No inguinal hernias or adenopathy. Bones: There is a new lytic bony lesion within the left anterior aspect of the L4 vertebral body consistent with metastatic disease. No vertebral body compression fractures. IMPRESSION: 1. Findings consistent with extensive progression of metastatic disease including peritoneal carcinomatosis, liver metastases, stephanie metastases in the retroperitoneum and pelvis, increased presacral soft tissue, and osseous metastases. 2. Small bowel obstruction demonstrated likely secondary to peritoneal implants in the left lower quadrant. 3. 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 4. Increased presacral soft tissue likely representing recurrent disease with associated suspect invasion of the posterior vaginal wall. Findings discussed with Kyra Godinez on 03/14/19 at 1:20 PM. Dictated by: Geoff Berry M.D. on 03/14/2019 at 13:07 Approved by: Geoff Berry M.D. on 03/14/2019 at 13:38
[2019-03-14 13:17] LABS: Amorphous Sediment Urine 1+; RBC Urine 1-5/HPF (0-5/HPF); Squamous Epithelial Cell Urine 5-10 /HPF (0-5/HPF); WBC Urine 5-10/HPF (0-5/HPF)
[2019-03-14 13:18] LABS: Bacteria Urine Few (2-10); Culture Indicated Urine Specimen Cultured; Mucus Urine 1+ (Negative)
[2019-03-14 13:59] VITALS: BP 152/92; PULSE 90; RESP 14; O2SAT 98
[2019-03-14 14:35] VITALS: BP 155/78; PULSE 82; RESP 17; O2SAT 100
[2019-03-14 15:30] VITALS: BP 132/72; PULSE 83; RESP 16; O2SAT 99
[2019-03-14] MEDS: POTASSIUM CHLORIDE 20 MEQ/15 ML UDC 40 MEQ PO (15:50)
[2019-03-14 16:25] VITALS: BP 153/76; PULSE 89; RESP 20; O2SAT 99
[2019-03-14] MEDS: ONDANSETRON 4 MG ODT SL (16:30)
[2019-03-14] MEDS: SIMETHICONE 80 MG TABLET PO (16:30)
[2019-03-14 17:11] VITALS: BP 146/77; PULSE 85; RESP 18; TEMP 37.1; O2SAT 100
--- NOTE | 2019-03-15 15:34 | PC.NURSE ---
Pt left message with triage line, returned pt's call. Pt reports recently seen in ER for bowel obstruction. Pt dc'd from ER and told to not advance diet until cleared by oncologist. This automobile and property underwriter spoke with Dr. Grewal and he is fine with pt advancing diet slowly as tolerated and he would like her to schedule an appointment as soon as possible. Let pt know okay to advance diet as tolerated, stressed importance of going very slow. Discussed diet advancing strategies from clear fluids, to full liquids, then to more substantial meals slowly as tolerated, pt verbalizes understanding states Oh I know, I have had surgeries and have had to do the same thing. Pt also agreeable to make f/u appt with Dr. Grewal. Spoke with retail assistant store manager, Sandie, Sandie will phone pt and assist with scheduling anna with Uri.
== END 2019-03-14 17:55 | disposition home or self-care (01) ==
PROVIDERS: Emergency Provider Nurse Practitioner Family; Family Provider Internal Medicine; PCP Internal Medicine
DX: N39.0 Urinary tract infection, site not specified (principal); R10.84 Generalized abdominal pain; R11.2 Nausea with vomiting, unspecified; C20 Malignant neoplasm of rectum; Z93.3 Colostomy status
CPT/HCPCS: 36591; 74177; 80053; 81003; 81015; 82150; 83690; 85025; 87086; 96360; 96361; 99284; Q9967

== ENCOUNTER → 2019-03-20 09:20 | Oncology outpatient (ONC) | payer MEDICARE, SELFPAY ==
[2019-03-20 09:32] VITALS: BP 137/80; PULSE 93; RESP 18; TEMP 37; O2SAT 99
--- NOTE | 2019-03-20 10:15 | P.PNONC_ITS ---
PN -Subjective Interval history: Diagnosis: Metastatic rectal cancer. Her cancer was initially found on screening colonoscopy. KRAS mutation positive. There were no mutations in mismatch repair. Previous treatment: 1. Neoadjuvant chemo radiation with 5 FU finishing in October 2014. 2. Jan with residual ypT1 N0 disease. 3. Twelve cycles of adjuvant FOLFOX completed July 2015 complicated by neuropathy. 4. Recurrence in the left common iliac node surgically resected in August 2016. 5. Additional lymph node recurrences with the rising CEA treated with FOLFIRI and Avastin from June 2017 until December 2017 stopping after 9 cycles because of diarrhea and chemo brain. 6. Surgical resection of left pelvic lymph node in September 2018 Interval history: The patient is a 69-year-old woman who returns today for follow-up. She has a history of metastatic rectal cancer. She stopped her chemotherapy in December of 2017 because of diarrhea and side effects. When I last saw her in June, she had evidence of solitary lymph node metastasis along the left pelvic sidewall. Over the winter, she was in [place] and followed at the [facility]. She was noted to have some increasing left lower extremity edema and was found to have increase in the size that node with obstruction of her iliac vessels. T here was no other evidence of distant metastasis and she underwent an EN bloc surgical resection with repair of the vessels. The completion of her surgery, she had no evidence of disease. Unfortunately, by her 1st follow-up in December, she had evidence of a rising CEA and evidence of recurrent disease by CT. She elected not to pursue any further chemotherapy. She has recently returned back to the [facility]. Last week, she developed increased nausea as well as decreased output from her ostomy. CT scan showed a partial small bowel obstruction. In addition, she had evidence of peritoneal carcinomatosis with increasing adenopathy, presacral soft tissue and new liver metastasis. She notes that she is not currently having any pain. Over the last 2 days, her ostomy output has diminished but prior to that it had been fairly good. She is not having any nausea or vomiting. She does feel hungry. She has been able to keep then liquids and some soft foods. Strength and energy level have been fair. No shortness of breath or cough. She has not had any unusual bleeding or bruising. She denies any other changes in her health. - Additional ROS Additional ROS: She was having some abdominal pain and nausea but that has resolved. She has had some decreased ostomy output. She notes some generalized weakness since she has not been eating very well. No adenopathy, no shortness of breath or cough. No fevers chills or sweats. Her activity level has been fair. Home Medications and Allergies Home Medications Medication Instructions Recorded Confirmed Type levothyroxine [Synthroid] 0.075 mcg PO QDAY #0 05/27/16 03/20/19 History pantoprazole 40 mg PO BID #0 05/27/16 03/20/19 History diphenoxylate-atropine 1 tab PO PRN PRN #30 tab 06/30/17 03/20/19 Rx ondansetron HCl 8 mg PO Q8H PRN #0 07/15/17 03/20/19 History dextroamphetamine-amphetamine 10 mg PO DAILY 03/17/18 03/20/19 History [Adderall] Cbd Oil 1 drp/day SUBLINGUAL QAM 04/07/18 03/20/19 History Colon Health 2 cap PO QAM 04/07/18 03/20/19 History lidocaine 1 applic TOPICAL DAILY PRN 04/07/18 03/20/19 History multivitamin 1 tab PO DAILY 04/07/18 03/20/19 History ondansetron 4 mg PO TID-QID PRN #30 tab 03/14/19 03/20/19 Rx acetaminophen [Tylenol] 325 mg PRN 03/20/19 03/20/19 History Allergies Allergy/AdvReac Type Severity Reaction Status Date / Time celecoxib [From Celebrex] Allergy Verified 03/14/19 11:19 Exam Vital signs: Vital Signs Temp Pulse Resp BP Pulse Ox 03/20/19 09:32 98.6 F 93 H 18 137/80 99 Intake and Output 03/19/19 03/20/19 03/20/19 23:59 07:59 15:59 Other: Weight 79.1 kg Patient Weight 03/20/19 23:59 Weight 79.1 kg - Constitutional positive no acute distress, positive average body habitus Comments: She is not further examined. Results - Imaging CT scan - abdomen: image reviewed CT scan - pelvis: image reviewed (Widespread abdominal metastasis from her rectal cancer. New liver metastases.) Additional studies: Procedures Closed [endoscopic] biopsy of large intestine (07/20/14) Esophagogastroduodenoscopy [EGD] with closed biopsy (07/20/14) Assessment and Plan (1) Rectal cancer Current visit: No Status: Acute 69-year-old woman with metastatic rectal cancer. She has evidence of a marked progression over the last few months. She does not want to pursue any further chemotherapy and instead would prefer a palliative approach. Will make referral to hospice for her. We did fill out a POLST today. She indicates that she would not want CPR, she comfort measures only and would not want any artificial nutrition or antibiotics. She did have questions regarding likely cause of . I think given her recent symptomatology, bowel obstruction as the most likely fatal event for her. It is impossible to predict time frame however. We make a hospice referral. I have not scheduled a follow-up appointment for her but would be happy to see her again in the future should the need arise.
--- NOTE | 2019-03-20 15:29 | ONC.MSW ---
Description: Hospice Referral Activity: Met with pt and her SO to review her advanced directives. She will plan to complete the POLST form with Dr. Grewal during her appt. today, she also has the General DPOA completed. HOT STRIP FINISHER provided teaching re: the different forms and their purposes. Provided a DPOA for Healthcare form, which they will plan to complete within the next few days, then will provide to hospice once she begins service. HOT STRIP FINISHER compiled pt's ONC medical records and faxed to hospice. Called Snehal, pt's SO, later the same afternoon, left a message offering support, as well as the availability to meet face/face sometime within the next few days for counseling prior to beginning hospice.
--- NOTE | 2019-06-08 12:38 | ONC.MSW ---
*Sent bereavement card.
== END ==
PROVIDERS: Family Provider Internal Medicine; PCP Internal Medicine
DX: C20 Malignant neoplasm of rectum (principal); C78.6 Secondary malignant neoplasm of retroperitoneum and peritoneum; C78.7 Secondary malignant neoplasm of liver and intrahepatic bile duct
CPT/HCPCS: 99214